=== PATIENT | male | born 1955 | race Caucasian/White ===

== ENCOUNTER 2023-10-11 11:52 | Outpatient (AMB) | payer MEDICARE, MEDICAID, SELFPAY ==
--- NOTE | 2023-10-11 11:57 | MHC.OFFVIS ---
Intake Vital Signs 10/11/23 11:58 Height 5 ft 8 in Weight 239 lb 6.752 oz BMI 36.4 Intake Visit Reasons: Cirrhosis and Hep C Intake Note: Patient presents to in office visit today as a new patient for cirrhosis and hepatitis C. CC: Patient c/o epigastric pain and abdominal bloating. Patient underwent EGD a couple of months at [facility]. Last colonoscopy at [place] as well but does not recall exact date. Patient was recently treated for H pylori per PTs . Supervisor Shaving And Splitting Required: No Accompanied by: Allergies carisoprodol [From [facility]] Allergy (Unknown, Verified 10/11/23 12:03) VOMITING HPI HPI Comments History of Present Illness Details This is a 68-year-old gentleman who has been referred by his primary care provider for reported history of chronic hepatitis-C and cirrhosis. Patient's previous core extruder was Lilia Flores NP. Pt reports having a longstanding hx of chronic HCV which he likely contracted through either IVDU or blood transfusion in the 1970s. Was treated in 2014 by his PCP with reported SVR. With this he resultantly had cirrhosis, also had etOH use in the background. Records from [facility] reviewed. EGD 06/14/2023 (Dr. Jackman): Irregularity at squamous columnar junction. Gastritis. Normal duodenum. Normal biopsies, no H pylori. EGD/colonoscopy 10/08/2019 (Dr. Moore): Grade 1 varices. Gastritis. Normal duodenal. Diverticulosis. Rectal polyps. Internal hemorrhoids. Hyperplastic polyps. No H pylori. Ultrasound elastography 07/24/2023: Coarse hepatic echotexture. No suspicious lesion. Nodular hepatic contour. Portal vein with hepatopetal flow. CBD 5 mm. Liver stiffness 10.6 correlating with known cirrhosis. Today, his main complaint is abdominal discomfort and bloating that gets progressively worse during the day. Has not identified any dietary triggers. Reports has been present intermittently since 2014. [facility] Surgical History (Updated 10/11/23 @ 12:12 by BRYAN Valentin) History of esophagogastroduodenoscopy (EGD) H/O colonoscopy Social History Alcohol intake: former Patient Tobacco Use Status: Former Tobacco user Review of Systems Const All systems reviewed & are unremarkable except as noted in HPI and below Physical Exam Vital Signs: BMI result Body Mass Index 36.4 Gen Appear: NAD, well nourished, undernourished HEENT: No scleral icterus, no bitemporal wasting noted Chest: CTA CVS: Regular S1/S2 no murmurs Abd: soft, nontender, nondistended, no shifting dullness to percussion, bowel sounds active Ext: No peripheral edema bilaterally Neuro: A/Ox3, no asterixis Derm: []Spider angioma and palmar erythema noted Const General: no acute distress HEENT Head: Yes normal to inspection Resp Effort & Inspection: normal respiratory effort GI Inspection: Yes normal to inspection Skin General skin exam: no rashes or lesions noted Neuro Other: Tremors and involuntary movements due to known tardive dyskinesia Assessment & Plan Assessment & Plan (1) Cirrhosis: Code(s): K74.60 - Unspecified cirrhosis of liver (2) Elevated LFTs: Code(s): R79.89 - Other specified abnormal findings of blood chemistry (3) Hepatitis C: Code(s): B19.20 - Unspecified viral hepatitis C without hepatic coma (4) Bloating: Code(s): R14.0 - Abdominal distension (gaseous) Plan #HCV cirrhosis: Labs ordered to monitor reported history of chronic hepatitis-C. Given history of IVDU, we will also check hepatitis-B. In addition, he will need q6m US to screen for HCC. NExt Us will be due in January 2024. Next EGD will be due in Jun 2025. #Abd bloating: No red flags. Ddx include dietary vs med related vs dymotility. Malabsorption less likely based on work up so far and negative duodenal bx. Will start with dietary modifications by reducing high FODMAPS. If suboptimal reponse check check vs empirically tx for SIBO. Handout provided for FODMAP diet. Follow up in 6 months Orders: Orders Complete Blood Count no Diff Today R79.89 - Other specified abnormal findings of blood chemistry Comprehensive Met. Panel Today R79.89 - Other specified abnormal findings of blood chemistry IRON PROFILE Today R79.89 - Other specified abnormal findings of blood chemistry Hepatitis C Antibody Today R79.89 - Other specified abnormal findings of blood chemistry Hepatitis B Core Antibody Today R79.89 - Other specified abnormal findings of blood chemistry Hepatitis B Surface Antigen Today R79.89 - Other specified abnormal findings of blood chemistry Hepatitis A IgG Today - Other specified abnormal findings of blood chemistry Prothrombin Time INR Today K74.60 - Unspecified cirrhosis of liver Transglutaminase IgA Today R14.0 - Abdominal distension (gaseous) Immunoglobulin A Today R14.0 - Abdominal distension (gaseous) HCV RNA QN PROG TO GENOTYPE Today - Other specified abnormal findings of blood chemistry Ferritin Today - Other specified abnormal findings of blood chemistry Hepatitis B Surface Antibody Today - Other specified abnormal findings of blood chemistry Phosphatidylethanol, Blood Today - Other specified abnormal findings of blood chemistry TSH reflex Free T4 Today R14.0 - Abdominal distension (gaseous) Coding Level of Care Code New Pt Level 4 (45938) Diagnoses Cirrhosis K74.60 Elevated LFTs Hepatitis C B19.20 Bloating R14.0
[2023-10-11 11:58] VITALS: BMI 36.4
== END 2023-10-11 12:44 | disposition home or self-care (01) ==
PROVIDERS: PCP Internal Medicine; Visit Provider Internal Medicine
DX: K74.60 Unspecified cirrhosis of liver (principal); R79.89 Other specified abnormal findings of blood chemistry; B19.20 Unspecified viral hepatitis C without hepatic coma; R14.0 Abdominal distension (gaseous)
CPT/HCPCS: 99204

== ENCOUNTER → 2023-10-11 11:52 | Outpatient (BNVA) | payer MEDICARE, MEDICAID, SELFPAY | PROVIDERS: PCP Internal Medicine; Visit Provider Internal Medicine | DX: K74.60 Unspecified cirrhosis of liver (principal); B19.20 Unspecified viral hepatitis C without hepatic coma; R79.89 Other specified abnormal findings of blood chemistry; R14.0 Abdominal distension (gaseous) | CPT/HCPCS: 99202 ==

== ENCOUNTER 2023-10-20 10:53 | Outpatient (REF) | payer MEDICARE, MEDICAID, SELFPAY ==
[2023-10-20 14:22] LABS: Hematocrit 50.5 % (42.0-52.0); Hemoglobin 17.6 g/dl (14.0-18.0); Mean Corpuscular HGB Conc 34.9 g/dl (31.0-36.0); Mean Corpuscular Hemoglobin 31.9 pg (27.0-33.0); Mean Corpuscular Volume 91.7 fL (80.0-98.0); Mean Platelet Volume 10.9 fL (9.4-12.4); Platelet Count 380 X10*3/uL (160-400); Red Blood Count 5.51 X10*6/uL (4.60-5.80); Red Cell Distribution Width 13.2 % (11.0-16.0); White Blood Count 10.3 X10*3/uL (4.8-10.8)
[2023-10-20 14:31] LABS: Prothrombin Time 11.7 SEC (11.1-13.3)
[2023-10-20 14:43] LABS: Alanine Aminotransferase 16 U/L (0-40); Albumin Level 4.3 g/dL (3.5-5.0); Alkaline Phosphatase 77 U/L (39-117); Anion Gap 10 (12-20); Aspartate Amino Transferase 23 U/L (5-37); Bilirubin Total 0.6 mg/dL (0.0-1.0); Blood Urea Nitrogen 12 mg/dL (9-16); Carbon Dioxide 33 mmol/L (22-29); Chloride 100 mmol/L (96-108); Estimated Glomerular Filt Rate > 60; Glucose Random 76 mg/dL (60-115); Iron 142 mcg/dL (45-160); Percent Iron Saturation 43 % (15-50); Sodium 139 mmol/L (135-145); Total Iron Binding Capacity 328 mcg/dL (228-428); Total Protein 8.3 g/dL (6.5-8.0); Unsaturated Iron Binding 186 ug/dL
[2023-10-20 14:57] LABS: Ferritin 164 ng/mL (20-250)
[2023-10-21 04:06] LABS: Hepatitis A Antibody IgG REACTIVE (Nonreactive); ~Hepatitis A Antibody IgG 8.89 S/CO (0.00-0.99)
[2023-10-21 04:13] LABS: HBS Num1 0.58 mIU/mL (0-7.99); HBc Num1 0.07 S/CO (0.00-0.79); HBsAGNum1 0.39 S/CO (0.00-0.99); Hepatitis B Core Antibody Nonreactive (Nonreactive); Hepatitis B Surface Antigen Negative (Negative); ~HepC Num1 12.15 S/CO (0.00-0.79); ~Hepatitis B Surface Antibody NONREACTIVE (Nonreactive); ~Hepatitis C Antibody Reactive (Nonreactive)
[2023-10-23 14:43] LABS: HCV RNA PCR Qn <1.18 NOT DETECTED Log IU/mL (NOT DETECTED); HCV RNA PCR Qn <15 NOT DETECTED IU/mL (NOT DETECTED)
[2023-10-26 08:43] LABS: Phosphatidylethanol 16:0-18:1 NEGATIVE; Phosphatidylethanol 16:0-18:2 NEGATIVE
== END 2023-10-20 10:54 | disposition home or self-care (01) ==
LOC: HO.WFDLDS 10:53
PROVIDERS: Visit Provider Internal Medicine
DX: K74.60 Unspecified cirrhosis of liver (principal); R79.89 Other specified abnormal findings of blood chemistry
CPT/HCPCS: 36415; 80053; 80321; 82728; 83540; 85027; 85610; 86704; 86706; 86708; 86803; 87340; 87522

== ENCOUNTER → 2023-11-28 15:10 | Outpatient (AMB) | payer MEDICARE, MEDICAID, SELFPAY ==
[2023-11-28 15:13] VITALS: BP 102/74; PULSE 63; BMI 36.5
--- NOTE | 2023-11-28 15:13 | A.OFFVIS_ITS ---
Vital Signs 11/28/23 15:13 Height 5 ft 8 in Weight 240 lb 4.862 oz BMI 36.5 BP 102/74 Blood Pressure Location Lt brachial Position Sitting Pulse 63 Intake Visit Reasons: wants to discuss labs Intake Note: Patient returns in office today in follow up of labs. CC: Patient reports that the epigstric pain has been worst since last visit and the abdominal bloating too. He also c/o left lower back pain and lower mid back pain. Patient very depressed the last couple of days d/t pain. He states that he has 4-5 BMs in the morning but it comes in little pieces. His states that she has been giving the PT charcoal caps to help with bloating and gas and it se ems like it's sending him more to the bathroom and his stools are darker. Telemetry Registered Nurse Required: No Accompanied by: Allergies carisoprodol [From [facility]] Allergy (Unknown, Verified 11/28/23 15:27) VOMITING HPI Comments Details: This is a 68-year-old gentleman who has been referred by his primary care provider for reported history of chronic hepatitis-C and cirrhosis. 10/11/23: Patient's previous visiting professor was Lilia Flores ACADEMIC ASSOCIATE. Pt reports having a longstanding hx of chronic HCV which he likely contracted through either IVDU or blood transfusion in the 1970s. Was treated in 2014 by his PCP with reported SVR. With this he resultantly had cirrhosis, also had etOH use in the background. Records from [facility] reviewed. EGD 06/14/2023 (Dr. Jackman): Irregularity at squamous columnar junction. Gastritis. Normal duodenum. Normal biopsies, no H pylori. EGD/colonoscopy 10/08/2019 (Dr. Moore): Grade 1 varices. Gastritis. Normal duodenal. Diverticulosis. Rectal polyps. Internal hemorrhoids. Hyperplastic polyps. No H pylori. Ultrasound elastography 07/24/2023: Coarse hepatic echotexture. No suspicious lesion. Nodular hepatic contour. Portal vein with hepatopetal flow. CBD 5 mm. Liver stiffness 10.6 correlating with known cirrhosis. Today, his main complaint is abdominal discomfort and bloating that gets progressively worse during the day. Has not identified any dietary triggers. Reports has been present intermittently since 2014. 11/28/23: Here for urgent follow up as called reporting pt has severe sx and may not survive due to severity of abd pain. Pt seen in presence of . Reports sx are unchanged in the last 3 years and have not gotten worse. Reports daily bloating which is worse in mid day. Patient not able to articulate if symptoms are different or worse from previous visit on 10/11/2023. has been trying charcoal capsules to improve diarrhea, but patient reports that stools have become significantly harder, and seem a bit darker as well. [facility] Surgical History History of esophagogastroduodenoscopy (EGD) H/O colonoscopy Social History Alcohol intake: former Patient Tobacco Use Status: Former Tobacco user Review of Systems Const All systems reviewed & are unremarkable except as noted in HPI and below Physical Exam Vital Signs: Last Vital Signs Pulse 63 11/28/23 15:13 BP 102/74 11/28/23 15:13 BMI result Body Mass Index 36.5 Const General: no acute distress HEENT Head: Yes normal to inspection Resp Effort & Inspection: normal respiratory effort GI Inspection: Yes normal to inspection Skin General skin exam: no rashes or lesions noted Neuro Other: Tremors and involuntary movements due to known tardive dyskinesia Results Reviewed Results Reviewed: Laboratory Tests 10/20/23 11:00 Hgb 17.6 Hct 50.5 Plt Count 380 INR 1.0 BUN 12 Creatinine 0.88 Ferritin 164 Total Bilirubin 0.6 AST 23 ALT 16 Alkaline Phosphatase 77 Total Protein 8.3 H Albumin 4.3 Hep Bs Antigen Negative HCV RNA (PCR) IUs/ml <15 NOT DETECTED HCV RNA PCR log IUs/ml <1.18 NOT DETECTED Assessment & Plan Assessment & Plan (1) Cirrhosis: Code(s): K74.60 - Unspecified cirrhosis of liver Category: Medical (2) Elevated LFTs: Code(s): R79.89 - Other specified abnormal findings of blood chemistry Category: Medical (3) Bloating: Code(s): R14.0 - Abdominal distension (gaseous) Category: Medical Plan #HCV cirrhosis: Labs reviewed with the patient, and he was reassured that no evidence of chronic hepatitis-C infection. Remains in SVR. Also does not appear to have any CS PH based on clinical assessment. As mentioned in previous visit, next EGD will be due in June 2025. He will be due for ultrasound for HCC screening next month - US booked. #Abd bloating: No red flags. Ddx include dietary vs med related vs dymotility. Malabsorption less likely based on work up so far and negative duodenal bx. Patient has not tried FODMAP diet yet. Patient and were also counseled against using charcoal is not indicated for bloating, in fact may make it worse. They are interested in empiric treatment for SIBO. Rifaximin does not appear to be covered by the insurance. Cipro 500 b.i.d. prescribed x 10 days Follow up in 4 weeks - already booked Medications: New ciprofloxacin HCl (Cipro) 500 mg PO BID 20 tabs 0RF 10 days
== END ==
PROVIDERS: PCP Internal Medicine; Visit Provider Internal Medicine
DX: K74.60 Unspecified cirrhosis of liver (principal); R79.89 Other specified abnormal findings of blood chemistry; R14.0 Abdominal distension (gaseous)
CPT/HCPCS: 99214

== ENCOUNTER → 2023-11-28 15:10 | Outpatient (BNVA) | payer MEDICARE, MEDICAID, SELFPAY | PROVIDERS: PCP Internal Medicine; Visit Provider Internal Medicine | DX: K74.60 Unspecified cirrhosis of liver (principal); R14.0 Abdominal distension (gaseous); R79.89 Other specified abnormal findings of blood chemistry | CPT/HCPCS: 99212 ==

== ENCOUNTER 2023-12-28 08:16 | Outpatient (REF) | payer MEDICARE, MEDICAID, SELFPAY ==
--- NOTE | ~2023-12-28 | US_ITS ---
EXAMINATION: US ABDOMEN COMPLETE CLINICAL INFORMATION: Unspecified cirrhosis of liver. COMPARISON: Limited abdominal ultrasound 12/31/2015 and 07/07/2015 (report only). TECHNIQUE: Real-time imaging of the abdominal viscera. FINDINGS: PANCREAS: Normal. ABDOMINAL AORTA: The proximal, mid, and distal segments are normal in caliber. INFERIOR VENA CAVA: Visualized portions are normal. LIVER: The liver is normal in size. Parenchymal echogenicity is normal. No focal hepatic lesion. There is no intrahepatic biliary duct dilatation seen. Of note, the main portal vein appears partially thrombosed but is still seen to have hepatopedal flow. The right and left portal veins are patent without thrombus. GALLBLADDER: The gallbladder is physiologically distended without evidence of stones, sludge, wall thickening or pericholecystic fluid. A 6 mm polyp is present. COMMON BILE DUCT: Normal in caliber measuring 0.4 cm in diameter. RIGHT KIDNEY: Normal. No hydronephrosis. No renal calculi or focal parenchymal lesions. The kidney measures 11.2 cm in maximum dimension. LEFT KIDNEY: No hydronephrosis or renal calculi. The kidney measures 11.3 cm in maximum dimension. 2 benign Bosniak class I renal cysts are noted, the largest measuring 1.1 cm which require no additional imaging or follow-up. No solid renal masses are seen. SPLEEN: Surgically absent. FREE FLUID: None. US/US abdomen complete IMPRESSION: 1. The main portal vein appears partially thrombosed with thrombus seen but does demonstrate hepatopedal flow. 2. 6 mm gallbladder polyp. 3. Status post splenectomy.
== END 2023-12-28 08:17 | disposition home or self-care (01) ==
LOC: HO.US 08:16
PROVIDERS: PCP Internal Medicine; Visit Provider Internal Medicine
DX: K74.60 Unspecified cirrhosis of liver (principal)
CPT/HCPCS: 76700

== ENCOUNTER 2024-01-02 11:05 | Outpatient (AMB) | payer MEDICARE, MEDICAID, SELFPAY ==
--- NOTE | 2024-01-02 11:09 | A.OFFVIS_ITS ---
Vital Signs 01/02/24 11:10 Height 5 ft 8 in Weight 238 lb 1.588 oz BMI 36.2 BP not taken reason Medical Reason Intake Visit Reasons: F/U U/S Intake Note: Arnold presents in the office as a follow up US. CC: Same concerns but here for results to the ultrasound. Machinist Wood Required: No Allergies carisoprodol [From [facility]] Allergy (Unknown, Verified 01/02/24 11:11) VOMITING HPI Comments Details: This is a 68-year-old gentleman who has been referred by his primary care provider for reported history of chronic hepatitis-C and cirrhosis. 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 Pt reports having a longstanding hx of chronic HCV which he likely contracted through either IVDU or blood transfusion in the 1970s. Was treated in 2014 by his PCP with reported SVR. With this he resultantly had cirrhosis, also had etOH use in the background. Records from [facility] reviewed. EGD 06/14/2023 (Dr. Jackman): Irregularity at squamous columnar junction. Gastritis. Normal duodenum. Normal biopsies, no H pylori. EGD/colonoscopy 10/08/2019 (Dr. Moore): Grade 1 varices. Gastritis. Normal duodenal. Diverticulosis. Rectal polyps. Internal hemorrhoids. Hyperplastic polyps. No H pylori. Ultrasound elastography 07/24/2023: Coarse hepatic echotexture. No suspicious lesion. Nodular hepatic contour. Portal vein with hepatopetal flow. CBD 5 mm. Liver stiffness 10.6 correlating with known cirrhosis. Today, his main complaint is abdominal discomfort and bloating that gets progressively worse during the day. Has not identified any dietary triggers. Reports has been present intermittently since 2014. 11/28/23: Here for urgent follow up as called reporting pt has severe sx and may not survive due to severity of abd pain. Pt seen in presence of . Reports sx are unchanged in the last 3 years and have not gotten worse. Reports daily bloating which is worse in mid day. Patient not able to articulate if symptoms are different or worse from previous visit on 10/11/2023. has been trying charcoal capsules to improve diarrhea, but patient reports that stools have become significantly harder, and seem a bit darker as well. 01/02/24: Here for follow up after cipro trial. Reports no improvement with ABx. Most of the frequent BMs are in the morning. First BM is normal and then the following 3-4 BMs are loose. Takes lactulose twice a day. Has the runs after taking the second dose of lactulose. US Abd reviewed- appears to have a partial thrombus in PV. Flow normal. From prev US done at [facility], no PVT was reported. No varices or PHG reported on EGD 06/2023 at [facility]. PFSH Surgical History History of esophagogastroduodenoscopy (EGD) H/O colonoscopy Social History Alcohol intake: former Patient Tobacco Use Status: Former Tobacco user Review of Systems Const All systems reviewed & are unremarkable except as noted in HPI and below Physical Exam Vital Signs: BMI result Body Mass Index 36.2 Const General: no acute distress HEENT Head: Yes normal to inspection Resp Effort & Inspection: normal respiratory effort GI Inspection: Yes normal to inspection Skin General skin exam: no rashes or lesions noted Neuro Other: Tremors and involuntary movements due to known tardive dyskinesia Assessment & Plan Assessment & Plan (1) Cirrhosis: Code(s): K74.60 - Unspecified cirrhosis of liver Category: Medical (2) Bloating: Code(s): R14.0 - Abdominal distension (gaseous) Category: Medical (3) Portal vein thrombosis: Code(s): I81 - Portal vein thrombosis Category: Medical (4) Diarrhea: Code(s): R19.7 - Diarrhea, unspecified Category: Medical Plan #HCV cirrhosis: #Partial PVT No evidence of chronic hepatitis-C infection. Remains in SVR. Also does not appear to have any CSPH based on clinical assessment. US results reviewed. Partial PVT - appears subacute as no clot mentioned on prev ious US done at [facility]. Plan: - Check LFTs - EGD for variceal screening - If no varices, can consider anticoagulation x 3 months vs repeat US in 3 months #Abd bloating and diarrhea: No red flags. Minimal response to empiric Abx for SIBO (cipro). Pt has been on rifaximin BID for HE. Reviewed that can titrate down lactulose to assess response. Plan: - Take lactulose one a day for goal 2-3 BMs - can increase if has <2BMs - If cont to have bloating, can consider discontinuing lactulose altogether (since also on rifaximin) vs alternating with miralax Follow up after EGD Orders: Orders EGD with Awad - GI Use Only Today I81 - Portal vein thrombosis Liver Panel Today R79.89 - Other specified abnormal findings of blood chemistry Coding Level of Care Code Est Pt Level 4 (98423) Diagnoses Cirrhosis K74.60 Bloating R14.0 Portal vein thrombosis I81 Diarrhea R19.7
[2024-01-02 11:10] VITALS: BMI 36.2
== END 2024-01-02 11:47 | disposition home or self-care (01) ==
PROVIDERS: PCP Internal Medicine; Visit Provider Internal Medicine
DX: K74.60 Unspecified cirrhosis of liver (principal); R14.0 Abdominal distension (gaseous); I81 Portal vein thrombosis; R19.7 Diarrhea, unspecified
CPT/HCPCS: 99214

== ENCOUNTER → 2024-01-02 11:05 | Outpatient (BNVA) | payer MEDICARE, MEDICAID, SELFPAY | PROVIDERS: PCP Internal Medicine; Visit Provider Internal Medicine | DX: R14.0 Abdominal distension (gaseous) (principal); I81 Portal vein thrombosis; R19.7 Diarrhea, unspecified; R79.89 Other specified abnormal findings of blood chemistry; Z86.19 Personal history of other infectious and parasitic diseases | CPT/HCPCS: 99212 ==

== ENCOUNTER 2024-01-03 10:38 | Day surgery (SDC) | payer MEDICARE, MEDICAID, SELFPAY ==
--- OUTSIDE RECORDS SUMMARY | 2024-01-03 10:40 | XMS_ITS | Continuity of Care Document ---
Author Organization [facility] Address [address] [place] [id number] Care Team Providers Care Blister Pack Operator Name Role Phone Hai PHOENIX, Rocael Valerio Primary Care Physician [phone] Encounter [facility] Date(s): 03/30/21 - 04/29/21 [facility] [address] [place] [id number] [place] Allergies, Adverse Reactions, Alerts Substance Reaction Severity Status [facility] Active Ingrezza Active Immunizations Given and Recorded Vaccine Date Status Refusal Reason pneumococcal 23-valent vaccine 09/20/18 Given Not Given Vaccine Date Status Refusal Reason influenza virus vaccine, inactivated 1 09/21/20 No t Given Patient Refuses 1Result Comment: pt already recieved flu shot Medications Carafate 1 gm oral tablet 1 Gm, 1, tablet, By Mouth, 4 times a day, # 360 tablet, Refills 3, Tot. Refills 3, Maintenance, 03/05/21 12:26:00 EDT, Route to Pharmacy Electronically, [id number] - [place], [place],Partial fill upon patient request if the prescripti... Start Date: 03/05/21 Status: Ordered ibuprofen 600 mg oral tablet TAKE 1 TABLET BY MOUTH THREE TIMES DAILY NEEDED WITH food Start Date: 11/06/20 Status: Ordered lactulose 10 gm/15 ml oral syrup 30 mL = 20 Gm, By Mouth, 3 times a day, # 480 mL, 0 Refills, Maintenance, 10/08/19 10:56:00 EST, Syrup Start Date: 10/08/19 Status: Ordered Lasix 20 mg oral tablet 20 mg, 1, tablet, By Mouth, Daily, # 30 tablet, Refills 0, Maintenance, 01/16/19 13:52:27 EDT Start Date: 01/16/19 Status: Ordered LORazepam 0.5 mg oral tablet 1 tablet = 0.5 mg, By Mouth, 3 times a day, PRN for anxiety, # 30 tablet, 2 Refills, Maintenance, 09/26/20 10:15:00 EST, Tablet, [facility] [address] [place] [address], Partial fill upon patient request if the prescription is for a schedule II... Start Date: 09/26/20 Status: Ordered omeprazole 40 mg oral enteric coated capsule 1 capsule = 40 mg, By Mouth, Daily, # 90 capsule, 3 Refills, Maintenance, 02/24/21 13:24:00 EDT, ECCapsule, [facility] [address] [place] [address], Partial fill upon patient request if the prescription is for a schedule II opioid drug., 174, c... Start Date: 02/24/21 Status: Ordered sertraline 100 mg oral tablet 1 tablet = 100 mg, By Mouth, Daily, Take with 50 mg tabs for a total of 150 mg daily, # 30 tablet, 0 Refills, Maintenance, 09/26/20 10:59:00 EST, Tablet, [facility] [address], Partial fill upon patient request if the prescript... Start Date: 09/26/20 Status: Ordered sertraline 50 mg oral tablet 1 tablet = 50 mg, By Mouth, Daily, # 30 tablet, 0 Refills, Maintenance, 09/26/20 10:58:00 EST, Tablet, [facility] [address] [place] [address], Partial fill upon patient request if the prescription is for a schedule II opioid drug., 176, cm, ... Start Date: 09/26/20 Status: Ordered spironolactone 100 mg oral tablet 100 mg, 1, tablet, By Mouth, Daily, Refills 0, Maintenance, 10/28/20 12:05:00 EST, Partial fill upon patient request if the prescription is for a schedule II opioid drug. Start Date: 10/28/20 Status: Ordered Xifaxan 550 mg oral tablet 1 tablet, By Mouth, 2 times a day, # 60 tablet, 5 Refills, Maintenance, 06/24/20 8:28:00 EDT, [facility], [facility], cm, 05/15/20 14:48:00 EDT, Height, 116.8, kg, 02/03/20 11:23:00 EDT, Dry Weight Start Date: 06/24/20 Status: Ordered Xifaxan 550 mg oral tablet 1 tablet = 550 mg, By Mouth, 2 times a day, # 180 tablet, 3 Refills, Maintenance, 01/10/21 12:51:00EDT, Tablet, [facility] - [place], [place], Partial fill upon patient request if the prescription is for a schedule II opioid drug., 17... Start Date: 01/10/21 Status: Ordered Problem List Condition Effective Dates Status Health Status Inform ant Bipolar disorder(Confirmed) Active Psychosis(Confirmed) Active Tardive dyskinesia(Confirmed) Active Hepatitis-C(Confirmed) Active Social History Social History Type Response Smoking Status Former smoker, quit more than 30 days ago entered on: 05/22/19 Sex
--- OUTSIDE RECORDS SUMMARY | 2024-01-03 10:40 | XMS_ITS | Continuity of Care Document ---
Author Organization [facility] Address [address] [place] [address]- Care Team Providers Care Chemist Internship Name Role Phone Hai PHOENIX, Rocael Valerio Primary Care Physician [phone] [place] [facility] [place] - 09/23/[address] [id number] Discharge Disposition: Transfer to [facility] Facility Attending Physician: Stefany Quinn MD Admitting Physician: Felisha Salas MD Referring Physician: Not on Staff, Referring MD Allergies, Adverse Reactions, Alerts Substance Reaction Severity Status Soma Active Ingrezza Active Immunizations Given and Recorded Vaccine Date Status Refusal Reason pneumococcal 23-valent vaccine 09/20/18 Given Not Given Vaccine Date Status Refusal Reason influenza virus vaccine, inactivated 1 09/21/20 No t Given Patient Refuses 1Result Comment: pt already recieved flu shot Medications acetaminophen 325 mg oral tablet 975 mg, 3, tablet, By Mouth, Every 6 hours, PRN, Refills 0, Maintenance, Pain , Mild, 09/23/20 11:50:00 EST, Partial fill upon patient request if the prescription is for a schedule II opioid drug. Start Date: 09/23/20 Status: Ordered bisacodyl 10 mg rectal suppository 1 supp = 10 mg, Rectally, 2 times a day, PRN Constipation, 0 Refills, Maintenance, 09/23/20 11:49:00 EST, Suppository, Partial fill upon patient request if the prescription is for a schedule II opioid drug. Start Date: 09/23/20 Status: Ordered docusate sodium 150 mg/15 ml oral liquid 10 mL = 100 mg, By Mouth, 2 times a day, PRN Constipation, 0 Refills, Maintenance, 09/23/20 11:49:00 EST, Liquid, Partial fill upon patient request if the prescription is for a schedule II opioid drug. Start Date: 09/23/20 Status: Ordered Enoxaparin 0.4 mL = 40 mg, Subcutaneous Injection, Daily, 0 Refills, Maintenance, 09/23/20 11:49:00 EST, Injection, Partial fill upon patient request if the prescription is for a schedule II opioid drug. Start Date: 09/23/20 Status: Ordered ibuprofen 600 mg oral tablet 600 mg, 1, tablet, By Mouth, 3 times a day, PRN, Refills 0, Maintenance, Pain , Mild, 10/08/19 10:34:00 EST Start Date: 10/08/19 Status: Ordered lactulose 10 gm/15 ml oral [...] 3 times a day, PRN for anxiety, 0 Refills, Maintenance, 11/08/19 15:30:00 EST, Tablet Start Date: 11/08/19 Status: Ordered Melatonin = 6 mg, By Mouth, Daily at bedtime, 0 Refills, Maintenance, 09/23/20 11:49:00 EST, Tablet, Partial fill upon patient request if the prescription is for a schedule II opioid drug. Start Date: 09/23/20 Status: Ordered olanzapine 5 mg oral tablet 5 mg, 1, tablet, By Mouth, 2 times a day, Refills 0, Maintenance, 09/23/20 11:49:00 EST, Partial fill upon patient request if the prescription is for a schedule II opioid drug. Start Date: 09/23/20 Status: Ordered olanzapine 5 mg oral tablet 5 mg, 1, tablet, By Mouth, 3 times a day, PRN, Refills 0, Maintenance, Agitation, 09/23/20 11:49:00EST, Partial fill upon patient request if the prescription is for a schedule II opioid drug. Start Date: 09/23/20 Status: Ordered sertraline 50 mg oral tablet 3 tablet = 150 mg, By Mouth, Daily, 0 Refills, Maintenance, 09/23/20 11:49:00 EST, Tablet, Partial fill upon patient request if the prescription is for a schedule II opioid drug. Start Date: 09/23/20 Status: Ordered Xifaxan 550 mg oral tablet 1 tablet, By Mouth, 2 times a day, # 60 tablet, 5 Refills, Maintenance, 06/24/20 8:28:00 EDT, [facility], 175, cm, 05/15/20 14:48:00 EDT, Height, 116.8, kg, 02/03/20 11:23:00 EDT, Dry Weight Start Date: 06/24/20 Status: Ordered Problem List Condition Effective Dates Status Health Status Inform ant Bipolar disorder(Confirmed) Active Psychosis(Confirmed) Active Tardive dyskinesia(Confirmed) Active Hepatitis-C(Confirmed) Active Results Orders for Microbiology Reports Name Date Urine Culture 09/13/20 Microbiology Reports TEST:Urine Culture STATUS:Auth (Verified) BODY SITE: SOURCE:HONG COLLECTED DATE/TIME:09/13/20 9:05 AM Urine Culture SPECIMEN DESCRIPTION : HONG CATHETER SPECIAL REQUESTS : NONE CULTURE : NO GROWTH REPORT STATUS : FINAL 09/14/2020 Radiology Reports * Exam Date Time Procedure Performing Provider Status 09/12/20 2:10 PM Chest Portable Greg Patel; Auth (Lamar ified) Notes: (Chest Portable) Reason For Exam: leukocytosis, high aspiration risk;Other: RESULT: Chest Portable Chest Portable AP upright at 2:01 PM INDICATION: leukocytosis, high aspiration risk; Clinical Question(s): Pneumonia / Pneumonia COMPARISON: 09/09/2020 FINDINGS: LINES AND TUBES: None. LUNGS AND PLEURA: Clear lungs. Normal pulmonary vascularity. No pleural effusion. No pneumothorax. HEART, MEDIASTINUM AND ADRIENNE: Heart is normal in size. Normal mediastinal and hilar contour. BONES AND SOFT TISSUES: No acute abnormality. IMPRESSION: No evidence of acute abnormality. WSN: [id number] Ordering Physician: Maddie Lemos Dictated By: Logan Childress MD Dictated Date/Time: 09/12/20 2:18 pm Reviewed By: Logan Childress MD Signed By: Logan Childress MD Signed Date/Time: 09/12/20 2:18 pm Transcribed By: PHILIP Transcribed Date/Time: 09/12/20 2:17 pm * Exam Date Time Procedure Performing Provider Status 09/09/20 10:37 PM Chest Portable Ana Luisa Castillo; Auth (Verified) Notes: (Chest Portable) Reason For Exam: Tube Placement RESULT: Chest Portable AP supine portable chest dated September 09, 2020 at 2116 hours. Comparison films are from earlier in the day at 1708 hours. HISTORY: Nasogastric tube placement. FINDINGS: The cardiac silhouette is increased in size and unchanged. Endotracheal tube remains in place with its tip 4.4 cm proximal to the kristi. A nasogastric tube extends into the left upper quadrant. It curls still being beneath the left hemidiaphragm. The tip and sidehole are distal to the EG junction region. Some metallic artifacts are present overlying the upper abdomen on the left. Increased attenuation is present at the left lung base most consistent with atelectasis. Visualized osseous structures are unremarkable. IMPRESSION: Nasogastric tube in place. It is in the left upper quadrant overlying the expected location of the fundus of the stomach. Examination [id number]. Thank you for allowing me to participate in the care of this patient. WSN: [id number] Ordering Physician: Konrad Coffman Dictated By: Jacoby Harris MD Dictated Date/Time: 09/09/20 11:00 p Reviewed By: Jacoby Harris MD Signed By: Jacoby Harris MD Signed Date/Time: 09/09/20 11:00 pm Transcribed By: PHILIP Transcribed Date/Time: 09/09/20 11:00 pm Vital Signs Most recent to oldest [Reference Range]: 1 2 3 Height 175 cm (09/23/20 8:06 AM) 175 cm (09/23/20 3:44 AM) 175 cm (09/22/20 11:47 PM) Weight 112.5 kg (09/23/20 3:44 AM) 113.3 kg (09/22/20 2:49 AM) 112 kg (09/21/20 3:52 AM) Oxygen Saturation [94-100 %] 95 % (09/23/20 8:06 AM) 96 % (09/23/20 3:44 AM) 97 % (09/22/20 11:47 PM) Pulse Rate [55-90 bpm] 58 bpm (09/23/20 8:06 AM) 58 bpm (09/23/20 3:44 AM) 69 bpm (09/22/20 11:47 PM) Body Mass Index [18.5-24.99] 36.73 *>HHI* (09/23/20 3:44 AM) 37 *>HHI* (09/22/20 2:49 AM) 36.57 *>HHI* (09/21/20 3:52 AM) Blood Pressure [90-138/55-84 mm Hg] 135/76mm Hg (09/23/20 8:06 AM) 129/74mm Hg (09/23/20 3:44 AM) 140/73mm Hg *H* (09/22/20 11:47 PM) Respiratory Rate [16-30 br/min] 18 br/min (09/23/20 8:06 AM) 18 br/min (09/23/20 3:44 AM) 18 br/min (09/22/20 11:47 PM) Temperature [96.8-100.4 DegF] 98.5 DegF (09/23/20 8:06 AM) 98.5 DegF (09/23/20 3:44 AM) 98.1 DegF (09/22/20 11:47 PM) Liters per Minute 3 L/min (09/13/20 7:00 AM) 3 L/min (09/13/20 3:00 AM) 3 L/min (09/12/20 11:00 PM) Mode of Delivery (Oxygen) Room air (09/23/20 8:06 AM) Room air (09/23/20 3:44 AM) Room air (09/22/20 11:47 PM) Blood pressure sites Arm, left (09/23/20 8:06 AM) Arm, right (09/23/20 3:44 AM) Arm, right (09/22/20 11:47 PM) Temperature Route Oral (09/23/20 8:06 AM) Oral (09/23/20 3:44 AM) Oral (09/22/20 11:47 PM) Dry Weight 114.7 kg (09/09/20 7:58 PM) Weight Obtained Via Bed scale (09/23/20 3:44 AM) Bed scale (09/22/20 2:49 AM) Bed scale (09/21/20 3:52 AM) Social History Social History Type Response Smoking Status Former smoker, quit more than 30 days ago entered on: 05/22/19 Sex
--- OUTSIDE RECORDS SUMMARY | 2024-01-03 10:40 | XMS_ITS | Continuity of Care Document ---
Author Organization [facility] Address [address] [place] [address]- Care Team Providers Care Texture Artist Name Role Phone Rocael Valles MD Primary Care Physician [phone] Encounter [facility] [place] R [id number] Date(s): 06/29/23 - 08/04/23 [facility] [address] [place] [address]- Attending Physician: Elder PHOENIX, Salomón Felder Admitting Physician: Elder PHOENIX, Salomón Felder Referring Physician: Rocael Valles MD Allergies, Adverse Reactions, Alerts Substance Reaction Severity Status Soma Active Ingrezza Active Immunizations Given and Recorded Vaccine Date Status Refusal Reason pneumococcal 23-valent vaccine 09/20/18 Given Medications clonazePAM 0.5 mg oral tablet 1 tablet = 0.5 mg, By Mouth, 2 times a day, 0 Refills, Maintenance, 02/19/22 10:27:00 EDT, Tablet, Partial fill upon patient request if the prescription is for a schedule II opioid drug. Start Date: 02/19/22 Status: Ordered lactulose 10 gm/15 ml oral syrup 30 mL = 20 Gm, By Mouth, 2 times a day, # 480 mL, 1 Refills, Maintenance, 02/19/22 10:29:00 EDT, Syrup, [facility] [place], [place], Partial fill upon patient request if the prescription is for a schedule II opioid drug., 30 mL By Mo... Start Date: 02/19/22 Status: Ordered Lasix 20 mg oral tablet 20 mg, 1, tablet, By Mouth, Daily, # 90 tablet, Refills 3, Tot. Refills 3, Maintenance, 01/25/23 15:34:00 EDT, Route to Pharmacy Electronically, [facility] [place], [place], Partialfill upon patient request if the prescription is fo... Start Date: 01/25/23 Status: Ordered Protonix 40 mg oral delayed release tablet 1 tablet = 40 mg, By Mouth, 2 times a day, # 60 tablet, 1 Refills, Maintenance, 05/26/23 9:38:00 EDT, EC Tablet, 174, cm, 01/07/23 13:28:00 EDT, Height, 98, kg, 02/11/22 18:56:00 EDT, Dry Weight Start Date: 05/26/23 Stop Date: 07/25/23 Status: Ordered sertraline 100 mg oral tablet 1 tablet = 100 mg, By Mouth, Daily, Take with 50 mg tabs for a total of 150 mg daily, # 30 tablet, 1 Refills, Maintenance, 02/19/22 10:29:00 EDT, Tablet, [facility] [address] [place] [address], [place], Partial fill upon patient request if the prescript... Start Date: 02/19/22 Status: Ordered spironolactone 100 mg oral tablet 1, tablet, By Mouth, Daily, # 30 tablet, Refills 1, Tot. Refills 1, Maintenance, 07/25/23 10:30:00 EST, Route to Pharmacy Electronically, [facility] [facility], [place], 172, cm, 06/14/23 13:53:00 EDT, Height, 106.8, kg, 06/14/23 13:53:... Start Date: 07/25/23 Status: Ordered Xifaxan 550 mg oral tablet 1 tablet = 550 mg, By Mouth, 2 times a day, # 180 tablet, 1 Refills, Maintenance, 01/25/23 15:35:00EDT, Tablet, [facility] [address] [place] [address], [place], Partial fill upon patient request if the prescription is for a schedule II opioid drug., 17... Start Date: 01/25/23 Stop Date: 07/24/23 Status: Ordered Problem List Condition Confirmation Course Effective Dates Status Health St atus Informant Bipolar disorder Confirmed Active Obese class II Confirmed Active Psychosis Confirmed Active Tardive dyskinesia Confirmed Active Hepatitis-C Confirmed Active Social History Social History Type Response Smoking Status Former smoker, quit more than 30 days ago entered on: 05/22/19 Sex Patient Care team information Care Team Personnel Name: Génesis Underwood RN Position: [facility] RN Member Role: Primary Care Nurse Name: Alessandra Albarran RN Position: [facility] RN Member Role: Primary Care Nurse Name: Saad Sy RN Position: [facility] RN Member Role: Primary Care Nurse Name: Shilpa Aguero RN Position: [facility] RN Member Role: Primary Care Nurse Name: Ana M Vega RN Position: [facility] RN Member Role: Primary Care Nurse Name: Kim Adair RN Position: [facility] AMB Nurse Member Role: Primary Care Nurse Name: Rocael Valles MD Position: [facility] Physician - Primary Care Member Role: PCP Address: Address: [address] [place] [address], [address] [place] [address]- Name: Ana M Farnsworth RN Position: [facility] RN Member Role: Primary Care Nurse Care Team Related Persons Name: JUANPABLO CARTER Address: [address] [place] [address]
--- OUTSIDE RECORDS SUMMARY | 2024-01-03 10:40 | XMS_ITS | Continuity of Care Document ---
Author Organization [facility] Address [address] [place] [address]- Care Team Providers Care Associate Quality Engineer Name Role Phone Hai PHOENIX, Rocael Valerio Primary Care Physician [phone] [place] [facility] [place]20 [facility] [address] [place] [id number] Attending Physician: Una Fuentes Admitting Physician: Una Fuentes Referring Physician: AdmtrUna Referring Physician: Génesis Chang [place] Allergies, Adverse Reactions, Alerts Substance Reaction Severity Status Soma Active Ingrezza Active Immunizations Given and Recorded Vaccine Date Status Refusal Reason pneumococcal 23-valent vaccine 09/20/18 Given Medications eplerenone 50 mg oral tablet 1 tablet = 50 mg, By Mouth, Daily, TAKE 1 TABLET BY MOUTH DAILY Start Date: 09/11/20 Status: Ordered ibuprofen 600 mg oral tablet [...] EST, Tablet Start Date: 11/08/19 Status: Ordered sertraline 50 mg oral tablet 1 tablet = 50 mg, By Mouth, Daily, # 30 tablet, 0 Refills, Maintenance, 05/24/19 15:34:23 EDT, Tablet Start Date: 05/24/19 Status: Ordered spironolactone 100 mg oral tablet 100 mg, By Mouth, Daily, Refills 0, Maintenance, 09/22/18 17:27:58 EST Start Date: 09/22/18 Status: Ordered Xenazine 12.5 mg oral tablet 1 tablet = 12.5 mg, By Mouth, 3 times a day, # 90 tablet, 0 Refills, Maintenance, 05/16/20 9:31:00 EDT, Tablet, [facility] [place], [place], 175, cm, 05/15/20 14:48:00 EDT, Height, 116.8, kg, 02/03/20 11:23:00 EDT, Dry Weight Start Date: 05/16/20 Status: Ordered Xifaxan 550 mg oral tablet 1 tablet, By Mouth, 2 times a day, # 60 tablet, 5 Refills, Maintenance, 06/24/20 8:28:00 EDT, [facility], 175, cm, 05/15/20 14:48:00 EDT, Height, 116.8, kg, 02/03/20 11:23:00 EDT, Dry Weight Start Date: 06/24/20 Status: Ordered Zoloft 100 mg oral tablet 1 tablet = 100 mg, By Mouth, Daily, # 30 tablet, 0 Refills, Maintenance, 01/16/19 13:52:44 EDT, Tablet Start Date: 01/16/19 Status: Ordered Problem List Condition Effective Dates Status Health Status Inform ant Bipolar disorder(Confirmed) Active Psychosis(Confirmed) Active Tardive dyskinesia(Confirmed) Active Hepatitis-C(Confirmed) Active Social History Social History Type Response Smoking Status Former smoker, quit more than 30 days ago entered on: 05/22/19 Sex
--- OUTSIDE RECORDS SUMMARY | 2024-01-03 10:40 | XMS_ITS | Continuity of Care Document ---
Author Organization [facility] Address [address] [place] [address]- Care Team Providers Care Dental Instrument Maker Name Role Phone Hai PHOENIX, Rocael Valerio Primary Care Physician [phone] Encounter [facility] Date(s): 01/30/21 - 03/01/21 [facility] [address] [place] [id number] Allergies, Adverse Reactions, Alerts Substance Reaction Severity Status Soma Active Ingrezza Active Immunizations Given and Recorded Vaccine Date Status Refusal Reason pneumococcal 23-valent vaccine 09/20/18 Given Not Given Vaccine Date Status Refusal Reason influenza virus vaccine, inactivated 1 09/21/20 No t Given Patient Refuses 1Result Comment: pt already recieved flu shot Medications eplerenone 50 mg oral tablet 1 tablet = 50 mg, By Mouth, 2 times a day, 0 Refills, Maintenance, 10/28/20 12:06:00 EST, Partial fill upon patient request if the prescription is for a schedule II opioid drug. Start Date: 10/28/20 Status: Ordered ibuprofen 600 mg oral tablet [...] 2 Refills, Maintenance, 09/26/20 10:15:00 EST, Tablet, [facility] [address] [place] [address], Partial fill upon patient request if the prescription is for a schedule II... Start Date: 09/26/20 Status: Ordered olanzapine 5 mg oral tablet 5 mg, 1, tablet, By Mouth, 2 times a day, # 60 tablet, Refills 0, Tot. Refills 0, Maintenance, 09/26/20 10:16:00 EST, Route to Pharmacy Electronically, [facility] [address] [place] [address], Partial fill upon patient request if the prescriptio... Start Date: 09/26/20 Status: Ordered omeprazole 40 mg oral enteric coated capsule 1 capsule = 40 mg, By Mouth, Daily, # 90 capsule, 3 Refills, Maintenance, 02/24/21 13:24:00 EDT, ECCapsule, [facility] [address] [place] [address], Partial fill upon patient request if the prescription is for a schedule II opioid drug., 174, c... Start Date: 02/24/21 Status: Ordered ondansetron 4 mg oral tablet, disintegrating 1 tablet = 4 mg, By Mouth, Every 8 hours, PRN as needed for nausea/vomiting, # 8 tablet, 0 Refills,Maintenance, 10/28/20 17:50:00 EST, DIS Tablet, [facility] [address] [place] [address], Partial fill upon patient request if the prescription is... Start Date: 10/28/20 Status: Ordered sertraline 100 mg oral tablet 1 tablet = 100 mg, By Mouth, Daily, Take with 50 mg tabs for a total of 150 mg daily, # 30 tablet, 0 Refills, Maintenance, 09/26/20 10:59:00 EST, Tablet, [facility] [address] [place] [address], Partial fill upon patient request if the prescript... Start Date: 09/26/20 Status: Ordered sertraline 50 mg oral tablet 1 tablet = 50 mg, By Mouth, Daily, # 30 tablet, 0 Refills, Maintenance, 09/26/20 10:58:00 EST, Tablet, [facility] [address] [place] [address], Partial fill upon patient request if the prescription is for a schedule II opioid drug., 176, cm, ... Start Date: 09/26/20 Status: Ordered spironolactone 100 mg oral tablet 100 mg, 1, tablet, By Mouth, Daily, Refills 0, Maintenance, 10/28/20 12:05:00 EST, Partial fill upon patient request if the prescription is for a schedule II opioid drug. Start Date: 10/28/20 Status: Ordered traZODone 50 mg oral tablet 50 mg, 1, tablet, By Mouth, Daily at bedtime, Refills 0, Maintenance, 10/28/20 12:04:00 EST, Partial fill upon patient request if the prescription is for a schedule II opioid drug. Start Date: 10/28/20 Status: Ordered Xifaxan 550 mg oral tablet 1 tablet, By Mouth, 2 times a day, # 60 tablet, 5 Refills, Maintenance, 06/24/20 8:28:00 EDT, [facility], [facility], cm, 05/15/20 14:48:00 EDT, Height, 116.8, kg, 02/03/20 11:23:00 EDT, Dry Weight Start Date: 06/24/20 Status: Ordered Xifaxan 550 mg oral tablet 1 tablet = 550 mg, By Mouth, 2 times a day, # 180 tablet, 3 Refills, Maintenance, 01/10/21 12:51:00EDT, Tablet, [facility] [place], [place], Partial fill upon patient request if [...]
--- OUTSIDE RECORDS SUMMARY | 2024-01-03 10:40 | XMS_ITS | Continuity of Care Document ---
Author Organization [facility] Address [address] [place] [address]- Care Team Providers Care Research Anthropologist Name Role Phone Rocael Valles MD Primary Care Physician Encounter [facility] [place] Date(s): 05/19/23 - 06/18/23 [facility] [address] [place] [address]- [place] Allergies, Adverse Reactions, Alerts Substance Reaction [...] 1 Refills, Maintenance, 02/19/22 10:29:00 EDT, Syrup, [facility] [address] [place] [address], Partial fill upon patient request if the prescription is for a schedule II opioid drug., 30 mL By Mo... Start Date: 02/19/22 Status: Ordered Lasix 20 mg oral tablet 20 mg, 1, tablet, By Mouth, Daily, # 90 tablet, Refills 3, Tot. Refills 3, Maintenance, 01/25/23 15:34:00 EDT, Route to Pharmacy Electronically, [facility] [place], [place], Partialfill upon patient request if the [...] 1 Refills, Maintenance, 02/19/22 10:29:00 EDT, Tablet, [facility] [place], [place], Partial fill upon patient request if the prescript... Start Date: 02/19/22 Status: Ordered spironolactone 100 mg oral tablet 1, tablet, By Mouth, Daily, # 30 tablet, Refills 1, Maintenance, 05/24/23 14:10:00 EDT, Route to Pharmacy Electronically, [facility], 174, cm, 01/07/23 13:28:00 EDT, Height, 98, kg, 02/11/22 18:56:00 EDT, Dry Weight Start Date: 05/24/23 Status: Ordered Xifaxan 550 mg oral tablet 1 tablet = 550 mg, By Mouth, 2 times a day, # 180 tablet, 1 Refills, Maintenance, 01/25/23 15:35:00EDT, Tablet, [facility] [address] [place] [address], Partial fill upon patient request if the [...] Team Personnel Name: Génesis Underwood RN Position: S RN Member Role: Primary Care Nurse Name: Alessandra Albarran RN Position: S RN Member Role: Primary Care Nurse Name: Saad Sy RN Position: S RN Member Role: Primary Care Nurse Name: Shilpa Aguero RN Position: S RN Member Role: Primary Care Nurse Name: Ana M Vega RN Position: [facility] RN Member Role: Primary Care Nurse Name: Kim Adair RN Position: [facility] AMB Nurse Member Role: Primary Care Nurse Name: Rocael Valles MD Position: [facility] Physician - Primary Care Member Role: PCP Address: Address: [address] [place] [address], [address] [place] [address]- Name: Ana M Farnsworth RN Position: [facility] RN Member Role: Primary Care Nurse Care Team Related Persons Name: JAUNPABLO CARTER Address: [address] [place] [address]
--- OUTSIDE RECORDS SUMMARY | 2024-01-03 10:40 | XMS_ITS | Continuity of Care Document ---
Author Organization [facility] Address [address] [place] [address]- Care Team Providers Care Power Nut Runner Operator Name Role Phone Rocael Valles MD Primary Care Physician Encounter [facility] Date(s): 09/25/20 - 01/22/21 [facility] [address] [place] [id number] Attending Physician: Dominga Cárdenas MD Admitting Physician: Dominga Cárdenas MD Referring Physician: Rocael Valles MD Allergies, Adverse [...] 2 Refills, Maintenance, 09/26/20 10:15:00 EST, Tablet, [facility] [address] [place] [address], Partial fill upon patient request if the prescription is for a schedule II... Start Date: 09/26/20 Status: Ordered olanzapine 5 mg oral tablet 5 mg, 1, tablet, By Mouth, 2 times a day, # 60 tablet, Refills 0, Tot. Refills 0, Maintenance, 09/26/20 10:16:00 EST, Route to Pharmacy Electronically, [facility] [address] [place] [address], Partial fill upon patient request if the prescriptio... Start Date: 09/26/20 Status: Ordered ondansetron 4 mg oral tablet, disintegrating 1 tablet = 4 mg, By Mouth, Every 8 hours, PRN as needed for nausea/vomiting, # 8 tablet, 0 Refills,Maintenance, 10/28/20 17:50:00 EST, DIS Tablet, [facility] [address] [place] [address], Partial fill upon patient request if the prescription is... Start Date: 10/28/20 Status: Ordered sertraline 100 mg oral tablet 1 tablet = 100 mg, By Mouth, Daily, Take with 50 mg tabs for a total of 150 mg daily, # 30 tablet, 0 Refills, Maintenance, 09/26/20 10:59:00 EST, Tablet, [facility] [address] [place] [address], Partial fill upon patient request if the prescript... Start Date: 09/26/20 Status: Ordered sertraline 50 mg oral tablet 1 tablet = 50 mg, By Mouth, Daily, # 30 tablet, 0 Refills, Maintenance, 09/26/20 10:58:00 EST, Tablet, [facility] [address], [place], Partial fill upon patient request if the [...] tablet, 5 Refills, Maintenance, 06/24/20 8:28:00 [facility], cm, 05/15/20 14:48:00 EDT, Height, 116.8, kg, 02/03/20 11:23:00 EDT, Dry Weight Start Date: 06/24/20 Status: Ordered Xifaxan 550 mg oral tablet 1 tablet = 550 mg, By Mouth, 2 times a day, # 180 tablet, 3 Refills, Maintenance, 01/10/21 12:51:00EDT, Tablet, [facility] - [place], [place], Partial fill upon patient request if [...]
--- OUTSIDE RECORDS SUMMARY | 2024-01-03 10:40 | XMS_ITS | Continuity of Care Document ---
Author Organization [facility] Address [address] [place] [address]- Care Team Providers Care Prisoner Classification Interviewer Name Role Phone Hai PHOENIX, Rocael Valerio Primary Care Physician [facility] Date(s): 11/19/20 - 12/19/20 [facility] [address] [place] [id number] Attending Physician: Una Fuentes Admitting Physician: AdmUna de la cruz Referring Physician: AdmtrUna Allergies, Adverse Reactions, Alerts Substance Reaction Severity [...] 0, Maintenance, 01/16/19 13:52:27 EDT Start Date: 5/14/19 Status: Ordered LORazepam 0.5 mg oral tablet 1 tablet = 0.5 mg, By Mouth, 3 times a day, PRN for anxiety, # 30 tablet, 2 Refills, Maintenance, 09/26/20 10:15:00 EST, Tablet, [facility] [address] [place] [address], Partial fill upon patient request if the prescription is for a schedule II... Start Date: 09/26/20 Status: Ordered olanzapine 5 mg oral tablet 5 mg, 1, tablet, By Mouth, 2 times a day, # 60 tablet, Refills 0, Tot. Refills 0, Maintenance, 09/26/20 10:16:00 EST, Route to Pharmacy Electronically, [facility] [address] [place] [address], Partial fill upon patient request if the prescriptio... Start Date: 09/26/20 Status: Ordered ondansetron 4 mg oral tablet, disintegrating 1 tablet = 4 mg, By Mouth, Every 8 hours, PRN as needed for nausea/vomiting, # 8 tablet, 0 Refills,Maintenance, 10/28/20 17:50:00 EST, DIS Tablet, [facility] [address] [place] [address], Partial fill upon patient request if the prescription is... Start Date: 10/28/20 Status: Ordered sertraline 100 mg oral tablet 1 tablet = 100 mg, By Mouth, Daily, Take with 50 mg tabs for a total of 150 mg daily, # 30 tablet, 0 Refills, Maintenance, 09/26/20 10:59:00 EST, Tablet, [facility] [address] [place] [address], Partial fill upon patient request if the prescript... Start Date: 09/26/20 Status: Ordered sertraline 50 mg oral tablet 1 tablet = 50 mg, By Mouth, Daily, # 30 tablet, 0 Refills, Maintenance, 09/26/20 10:58:00 EST, Tablet, [facility] [address] [place], [place], Partial fill upon patient request if [...] tablet, 5 Refills, Maintenance, 06/24/20 8:28:00 EDT, [facility], cm, 05/15/20 14:48:00 EDT, Height, 116.8, [...]
--- OUTSIDE RECORDS SUMMARY | 2024-01-03 10:40 | XMS_ITS | Continuity of Care Document ---
Author Organization [facility] Address [address] [place] [address]- Care Team Providers Care Drying Room Attendant Name Role Phone Rocael Valles MD Primary Care Physician Encounter [facility] R [id number] Date(s): 05/25/23 - 08/04/23 [facility] [address] [place] [id number]- Attending Physician: Elder PHOENIX, Salomón Felder Admitting [...] 1 Refills, Maintenance, 02/19/22 10:29:00 EDT, Syrup, [facility] [address] [place], [place], Partial fill upon patient request if the prescription is for a schedule II opioid drug., 30 mL By Mo... Start Date: 02/19/22 Status: Ordered Lasix 20 mg oral tablet 20 mg, 1, tablet, By Mouth, Daily, # 90 tablet, Refills 3, Tot. Refills 3, Maintenance, 01/25/23 15:34:00 EDT, Route to Pharmacy Electronically, [facility] [address] [place], [place], Partialfill upon patient request if the [...] 1 Refills, Maintenance, 02/19/22 10:29:00 EDT, Tablet, [facility] [address] [place] [address], [place], Partial fill upon patient request if the prescript... Start Date: 02/19/22 Status: Ordered spironolactone 100 mg oral tablet 1, tablet, By Mouth, Daily, # 30 tablet, Refills 1, Tot. Refills 1, Maintenance, 07/25/23 10:30:00 EST, Route to Pharmacy Electronically, [facility] [address] [facility], [place], 172, cm, 06/14/23 13:53:00 EDT, Height, 106.8, kg, 06/14/23 13:53:... Start Date: 07/25/23 Status: Ordered Xifaxan 550 mg oral tablet 1 tablet = 550 mg, By Mouth, 2 times a day, # 180 tablet, 1 Refills, Maintenance, 01/25/23 15:35:00EDT, Tablet, [facility] [address] [place] [address], [place], Partial fill upon patient request if the [...] Care Nurse Name: Alessandra Albarran RN Position: [facility] RN Member Role: Primary Care Nurse Name: Saad Sy RN Position: [facility] RN Member Role: Primary Care Nurse Name: Shilpa Aguero RN Position: [facility] RN Member Role: Primary Care Nurse Name: Ana M Vega RN Position: [facility] RN Member Role: Primary Care Nurse Name: Kim Adair RN Position: [facility] AMB Nurse Member Role: Primary Care Nurse Name: Rocael Valles MD Position: [facility] Physician - Primary Care Member Role: PCP Address: Address: [address] [place] [address], [address] [place] [address]- Name: Ana M Farnsworth RN Position: [facility] RN Member Role: Primary Care Nurse Care Team Related Persons Name: JUANPABLO CARTER Address: [address] [place] [address]
--- OUTSIDE RECORDS SUMMARY | 2024-01-03 10:40 | XMS_ITS | Continuity of Care Document ---
Author Organization [facility] Address [address] [place] [address]- Care Team Providers Care Boat Builder Name Role Phone Hai PHOENIX, Rocael Valerio Primary Care Physician [phone] Encounter [facility] Date(s): 05/18/22 - 06/17/22 [facility] [address] [place] [address]- [place] Allergies, Adverse Reactions, Alerts Substance Reaction Severity Status Soma Active Ingrezza Active Immunizations Given and Recorded Vaccine Date Status Refusal Reason pneumococcal 23-valent vaccine 09/20/18 Given Not Given Vaccine Date Status Refusal Reason influenza virus vaccine, inactivated 1 09/21/20 No t Given Patient Refuses 1Result Comment: pt already recieved flu shot Medications clonazePAM 0.5 mg oral tablet 1 [...] 1 Refills, Maintenance, 02/19/22 10:29:00 EDT, Syrup, [facility] [address] [place], [place], Partial fill upon patient request if the prescription is for a schedule II opioid drug., 30 mL By Mo... Start Date: 02/19/22 Status: Ordered Lasix 20 mg oral tablet 20 mg, 1, tablet, By Mouth, Daily, # 30 tablet, Refills 1, Tot. Refills 1, Maintenance, 02/19/22 10:29:00 EDT, Route to Pharmacy Electronically, [facility] [address] [place], [place], Partialfill upon patient request if the prescription is fo... Start Date: 02/19/22 Status: Ordered lidocaine 5% topical film See Instructions, apply 2 patchesTopically Daily, # 60 patch, 1 Refills, Maintenance, 02/19/22 10:28:00 EDT, Patch, [facility] [address] [place] [address], Partial fill upon patient request ifthe prescription is for a schedule II opioid drug.,... Start Date: 02/19/22 Status: Ordered Nexium 40 mg oral enteric coated capsule 1 capsule = 40 mg, By Mouth, Daily, # 90 capsule, 3 Refills, Maintenance, 04/15/22 13:09:00 EDT, ECCapsule, [facility] [address] [place] [address], Partial fill upon patient request if the prescription is for a schedule II opioid drug., 174, c... Start Date: 04/15/22 Status: Ordered Protonix 40 mg oral delayed release tablet 1 tablet = 40 mg, By Mouth, 2 times a day, # 60 tablet, 1 Refills, Maintenance, 02/19/22 10:29:00 EDT, [facility] Tablet, 174, cm, 02/19/22 9:31:00 EDT, Height, 98, kg, 02/11/22 18:56:00 EDT, Dry Weight Start Date: 02/19/22 Stop Date: 04/20/22 Status: Ordered sertraline 100 mg oral tablet 1 tablet = 100 mg, By Mouth, Daily, Take with 50 mg tabs for a total of 150 mg daily, # 30 tablet, 1 Refills, Maintenance, 02/19/22 10:29:00 EDT, Tablet, [facility] [address] [place] [address], [place], Partial fill upon patient request if the prescript... Start Date: 02/19/22 Status: Ordered sertraline 50 mg oral tablet 1 tablet = 50 mg, By Mouth, Daily, # 30 tablet, 1 Refills, Maintenance, 02/19/22 10:29:00 EDT, Tablet, [facility] [address] [place] [address], [place], Partial fill upon patient request if the prescription is for a schedule II opioid drug., 174, cm, ... Start Date: 02/19/22 Status: Ordered spironolactone 100 mg oral tablet 100 mg, 1, tablet, By Mouth, Daily, # 30 tablet, Refills 1, Tot. Refills 1, Maintenance, 02/19/22 10:29:00 EDT, Route to Pharmacy Electronically, [facility] - [place], [place], Partial fill upon patient request if the prescription is f... Start Date: 02/19/22 Status: Ordered Problem List Condition Confirmation Course Effective Dates Status Health St [facility] Informant Bipolar disorder Confirmed Active Obese class I Confirmed Active Psychosis Confirmed Active Tardive dyskinesia Confirmed Active Hepatitis-C Confirmed Active Social History Social History Type Response Smoking Status Former smoker, quit more than 30 days ago entered on: 05/22/19 Sex Patient Care team information Personnel Name: Hai PHOENIX, Rocael Valerio Address: Address: [address] [place] [address], [address] [facility] [place], [place] [address]
--- OUTSIDE RECORDS SUMMARY | 2024-01-03 10:40 | XMS_ITS | Continuity of Care Document ---
Author Organization [facility] Address [address] [place] [address]- Care Team Providers Care Client Customer Manager Name Role Phone Hai PHOENIX, Rocael Valerio Primary Care Physician [phone] Encounter [facility] Date(s): 01/09/21 - 02/08/21 [facility] [address] [place] [address] [id number] Attending Physician: Una Fuentes Admitting Physician: Una Fuentes Referring Physician: Una Fuentes Referring Physician: Génesis Chang [place] Allergies, Adverse [...] 09/26/20 10:15:00 EST, Tablet, [facility] [address] [place], [place], Partial fill upon patient request if the prescription is for a schedule II... Start Date: 09/26/20 Status: Ordered olanzapine 5 mg oral tablet 5 mg, 1, tablet, By Mouth, 2 times a day, # 60 tablet, Refills 0, Tot. Refills 0, Maintenance, 09/26/20 10:16:00 EST, Route to Pharmacy Electronically, [facility], [place], Partial fill upon patient request if the prescriptio... Start Date: 09/26/20 Status: Ordered ondansetron 4 mg oral tablet, disintegrating 1 tablet = 4 mg, By Mouth, Every 8 hours, PRN as needed for nausea/vomiting, # 8 tablet, 0 Refills,Maintenance, 10/28/20 17:50:00 EST, DIS Tablet, [facility] [facility], [place], Partial fill upon patient request if the prescription is... Start Date: 10/28/20 Status: Ordered sertraline 100 mg oral tablet 1 tablet = 100 mg, By Mouth, Daily, Take with 50 mg tabs for a total of 150 mg daily, # 30 tablet, 0 Refills, Maintenance, 09/26/20 10:59:00 EST, Tablet, [facility] [address] [place] [address], Partial fill upon patient request if the prescript... Start Date: 09/26/20 Status: Ordered sertraline 50 mg oral tablet 1 tablet = 50 mg, By Mouth, Daily, # 30 tablet, 0 Refills, Maintenance, 09/26/20 10:58:00 EST, Tablet, [facility] [address] [place], [place], Partial fill upon patient request if [...] tablet, 5 Refills, Maintenance, 06/24/20 8:28:00 EDT[facility], cm, 05/15/20 14:48:00 EDT, Height, 116.8, kg, 02/03/20 11:23:00 EDT, Dry Weight Start Date: 06/24/20 Status: Ordered Xifaxan 550 mg oral tablet 1 tablet = 550 mg, By Mouth, 2 times a day, # 180 tablet, 3 Refills, Maintenance, 01/10/21 12:51:00EDT, Tablet, [facility] [place], [place], Partial fill upon patient request if [...]
--- OUTSIDE RECORDS SUMMARY | 2024-01-03 10:40 | XMS_ITS | Continuity of Care Document ---
Author Organization [facility] Address [address] [place] [address]- Care Team Providers Care Porcelain Enamel Installer Name Role Phone Hai PHOENIX, Rocael Valerio Primary Care Physician Encounter [facility] Date(s): 09/12/20 - 10/12/20 [facility] [address] [place] [id number] Allergies, Adverse Reactions, Alerts Substance Reaction Severity Status Soma Active Ingrezza Active Immunizations Given and Recorded Vaccine Date Status Refusal Reason pneumococcal 23-valent vaccine 09/20/18 Given Not Given Vaccine Date Status Refusal Reason influenza virus vaccine, inactivated 1 09/21/20 No t Given Patient Refuses 1Result Comment: pt already recieved flu shot Medications bisacodyl 10 mg rectal suppository 1 supp [...] opioid drug. Start Date: 09/23/20 Status: Ordered lactulose 10 gm/15 ml oral [...] 10:15:00 EST, Tablet, [facility] [facility], [place], Partial fill upon patient request if the prescription is for a schedule II... Start Date: 09/26/20 Status: Ordered Melatonin = 6 mg, By [...] 09/26/20 10:16:00 EST, Route to Pharmacy Electronically, [facility] [facility], [place], Partial fill upon patient request if the prescriptio... Start Date: 09/26/20 Status: Ordered sertraline 100 mg oral tablet 1 tablet = 100 mg, By Mouth, Daily, Take with 50 mg tabs for a total of 150 mg daily, # 30 tablet, 0 Refills, Maintenance, 09/26/20 10:59:00 EST, Tablet, [facility] [facility], [place], Partial fill upon patient request if the prescript... Start Date: 09/26/20 Status: Ordered sertraline 50 mg oral tablet 1 tablet = 50 mg, By Mouth, Daily, # 30 tablet, 0 Refills, Maintenance, 09/26/20 10:58:00 EST, Tablet, [facility] [facility], [place], Partial fill upon patient request if the prescription is for a schedule II opioid drug., 176, cm, ... Start Date: 09/26/20 Status: Ordered Xifaxan 550 mg oral tablet 1 tablet, By Mouth, 2 times a day, # 60 tablet, 5 Refills, Maintenance, 06/24/20 8:28:00 EDT, [facility], 175, cm, 05/15/20 14:48:00 EDT, Height, [...]
--- OUTSIDE RECORDS SUMMARY | 2024-01-03 10:40 | XMS_ITS | Continuity of Care Document ---
Author Organization [facility] Address [address] [place] [address]- Care Team Providers Care Airconditioning Plant Operator Name Role Phone Rocael Valles MD Primary Care Physician [phone] Encounter [facility] Date(s): 08/21/20 - 12/19/20 [facility] [address] [place] [phone]- Attending Physician: Dominga Cárdenas MD Referring Physician: Rocael [...] 2 Refills, Maintenance, 09/26/20 10:15:00 EST, Tablet, [facility] [address] [place] [address], Partial fill upon patient request if the prescription is for a schedule II... Start Date: 09/26/20 Status: Ordered olanzapine 5 mg oral tablet 5 mg, 1, tablet, By Mouth, 2 times a day, # 60 tablet, Refills 0, Tot. Refills 0, Maintenance, 09/26/20 10:16:00 EST, Route to Pharmacy Electronically, [facility] [address] [place], [place], Partial fill upon patient request if the prescriptio... Start Date: 09/26/20 Status: Ordered ondansetron 4 mg oral tablet, disintegrating 1 tablet = 4 mg, By Mouth, Every 8 hours, PRN as needed for nausea/vomiting, # 8 tablet, 0 Refills,Maintenance, 10/28/20 17:50:00 EST, DIS Tablet, [facility] [address] [place] [address], Partial fill upon patient request if the prescription is... Start Date: 10/28/20 Status: Ordered sertraline 100 mg oral tablet 1 tablet = 100 mg, By Mouth, Daily, Take with 50 mg tabs for a total of 150 mg daily, # 30 tablet, 0 Refills, Maintenance, 09/26/20 10:59:00 EST, Tablet, [facility] [address] [place] [address], Partial fill upon patient request if the prescript... Start Date: 09/26/20 Status: Ordered sertraline 50 mg oral tablet 1 tablet = 50 mg, By Mouth, Daily, # 30 tablet, 0 Refills, Maintenance, 09/26/20 10:58:00 EST, Tablet, [facility] [address] [place], [place], Partial fill upon patient request if [...] tablet, 5 Refills, Maintenance, 06/24/20 8:28:00 EDT, [facility], [facility], cm, 05/15/20 14:48:00 EDT, Height, [...]
--- OUTSIDE RECORDS SUMMARY | 2024-01-03 10:40 | XMS_ITS | Continuity of Care Document ---
Author Organization [facility] Address [address] [place] [address]- Care Team Providers Care Towel Distributor Name Role Phone Hai PHOENIX, Rocael Valerio Primary Care Physician [phone] [place] [facility] [place] 07/05/23 - 08/04/23 [facility] [address] [place] [address]- Attending Physician: Una Fuentes Admitting Physician: Una Fuentes Referring Physician: Una Fuentes Allergies, Adverse Reactions, Alerts Substance Reaction Severity [...] 1 Refills, Maintenance, 02/19/22 10:29:00 EDT, Syrup, [facility] [address] [place] [address], Partial fill upon patient request if the prescription is for a schedule II opioid drug., 30 mL By Mo... Start Date: 02/19/22 Status: Ordered Lasix 20 mg oral tablet 20 mg, 1, tablet, By Mouth, Daily, # 90 tablet, Refills 3, Tot. Refills 3, Maintenance, 01/25/23 15:34:00 EDT, Route to Pharmacy Electronically, [facility] [place], [place], Partialfill upon patient request if the [...] 10:29:00 EDT, Tablet, [facility], [place], Partial fill upon patient request if the prescript... Start Date: 02/19/22 Status: Ordered spironolactone 100 mg oral tablet 1, tablet, By Mouth, Daily, # 30 tablet, Refills 1, Tot. Refills 1, Maintenance, 07/25/23 10:30:00 EST, Route to Pharmacy Electronically, [facility], [place], 172, cm, 06/14/23 13:53:00 EDT, Height, 106.8, kg, 06/14/23 13:53:... Start Date: 07/25/23 Status: Ordered Xifaxan 550 mg oral tablet 1 tablet = 550 mg, By Mouth, 2 times a day, # 180 tablet, 1 Refills, Maintenance, 01/25/23 15:35:00EDT, Tablet, [facility] [address] [place] [address], [place], Partial fill upon patient request if the [...] Team Personnel Name: Génesis Underwood RN Position: [facility] RN Member Role: Primary Care Nurse Name: Alessandra Albarran RN Position: [facility] RN Member Role: Primary Care Nurse Name: Saad Sy RN Position: [facility] RN Member Role: Primary Care Nurse Name: Shilpa Aguero RN Position: [facility] RN Member Role: Primary Care Nurse Name: Ana M Vega RN Position: [facility] RN Member Role: Primary Care Nurse Name: Kim Adair RN Position: [facility] AMB Nurse Member Role: Primary Care Nurse Name: Rocael Valles MD Position: [facility] Physician - Primary Care Member Role: PCP Address: Address: [address] [place] [address], [address] [facility] [place] [address]- Name: Ana M Farnsworth RN Position: [facility] RN Member Role: Primary Care Nurse Care Team Related Persons Name: JUANPABLO CARTER Address: [address] [place] [address]
--- OUTSIDE RECORDS SUMMARY | 2024-01-03 10:41 | XMS_ITS | Continuity of Care Document ---
Author Organization [facility] Address [address] [place] [id number]- Care Team Providers Care Domain Architect Name Role Phone Rocael Valles MD Primary Care Physician [phone] Encounter [facility] [place] Date(s): 03/18/23 - 06/18/[address] [id number] Attending Physician: Troy Jackman DO Allergies, Adverse Reactions, Alerts Substance Reaction Severity [...] 1 Refills, Maintenance, 02/19/22 10:29:00 EDT, Syrup, [facility] [address] [place] [address], Partial fill upon patient request if the prescription is for a schedule II opioid drug., 30 mL By Mo... Start Date: 02/19/22 Status: Ordered Lasix 20 mg oral tablet 20 mg, 1, tablet, By Mouth, Daily, # 90 tablet, Refills 3, Tot. Refills 3, Maintenance, 01/25/23 15:34:00 EDT, Route to Pharmacy Electronically, [facility] [place], [place], Partialfill upon patient request if the [...] 10:29:00 EDT, Tablet, [facility], [place], Partial fill upon patient request if the prescript... Start Date: 02/19/22 Status: Ordered spironolactone 100 mg oral tablet 1, tablet, By Mouth, Daily, # 30 tablet, Refills 1, Maintenance, 05/24/23 14:10:00 EDT, Route to Pharmacy Electronically, [facility], 174, cm, 01/07/23 13:28:00 EDT, Height, 98, kg, 02/11/22 18:56:00 EDT, Dry Weight Start Date: 05/24/23 Status: Ordered Xifaxan 550 mg oral tablet 1 tablet = 550 mg, By Mouth, 2 times a day, # 180 tablet, 1 Refills, Maintenance, 01/25/23 15:35:00EDT, Tablet, [facility], [place], Partial fill upon patient request if the [...] Care Nurse Name: Saad Sy RN Position: [facility] RN Member Role: Primary Care Nurse Name: Shilpa Aguero RN Position: [facility] RN Member Role: Primary Care Nurse Name: Ana M Vega RN Position: [facility] RN Member Role: Primary Care Nurse Name: Kim Adair RN Position: [facility] AMB Nurse Member Role: Primary Care Nurse Name: Rocael Valles MD Position: [facility] Physician - Primary Care Member Role: PCP Address: Address: [address] [address], [address] [place] [address]- Name: Ana M Farnsworth RN Position: [facility] RN Member Role: Primary Care Nurse Care Team Related Persons Name: ADELA CARTERE Address: [address] [place] [address]
--- OUTSIDE RECORDS SUMMARY | 2024-01-03 10:41 | XMS_ITS | Continuity of Care Document ---
Author Organization [facility] Address [address], [address], [address] [place] [address]- Care Team Providers Care Stripper Cutter Machine Name Role Phone Rocael Valles MD Primary Care Physician [phone] Encounter [facility] Date(s): 03/16/21 - 04/15/21 [facility] [address], [address], [address] [place] [id number] Attending Physician: Una Fuentes Admitting Physician: Admtr, Ar8 Referring Physician: Admtr, Ar8 Allergies, Adverse Reactions, Alerts Substance Reaction Severity [...] 03/05/21 12:26:00 EDT, Route to Pharmacy Electronically, [facility] - [place], [place],Partial fill upon patient request if the prescripti... [...] Daily, # 30 tablet, Refills 0, Maintenance, 05/14/19 13:52:27 EDT Start Date: 01/16/19 Status: Ordered LORazepam 0.5 mg oral tablet 1 tablet = 0.5 mg, By Mouth, 3 times a day, PRN for anxiety, # 30 tablet, 2 Refills, Maintenance, 09/26/20 10:15:00 EST, Tablet, [facility] [place] [address] [place] [address], Partial fill upon patient request if the prescription is for a schedule II... Start Date: 09/26/20 Status: Ordered omeprazole 40 mg oral enteric coated capsule 1 capsule = 40 mg, By Mouth, Daily, # 90 capsule, 3 Refills, Maintenance, 02/24/21 13:24:00 EDT, ECCapsule, [facility] [place] [address] [place] [address], Partial fill upon patient request if the prescription is for a schedule II opioid drug., 174, c... Start Date: 02/24/21 Status: Ordered sertraline 100 mg oral tablet 1 tablet = 100 mg, By Mouth, Daily, Take with 50 mg tabs for a total of 150 mg daily, # 30 tablet, 0 Refills, Maintenance, 09/26/20 10:59:00 EST, Tablet, [facility] [place] [address] [place] [address], Partial fill upon patient request if the prescript... Start Date: 09/26/20 Status: Ordered sertraline 50 mg oral tablet 1 tablet = 50 mg, By Mouth, Daily, # 30 tablet, 0 Refills, Maintenance, 09/26/20 10:58:00 EST, Tablet, [facility] [place] [address] [place] [address], Partial fill upon patient request if the [...] tablet, 3 Refills, Maintenance, 01/10/21 12:51:00EDT, Tablet, [facility] - [place], [place], Partial fill upon patient request if [...]
--- OUTSIDE RECORDS SUMMARY | 2024-01-03 10:41 | XMS_ITS | Continuity of Care Document ---
Author Organization [facility] Address [address] [place] [address]- Care Team Providers Care Insulation And Flooring Assembler Name Role Phone Hai PH[place], Rocael Valerio Primary Care Physician Encounter [facility] [place] Date(s): 04/30/21 - 05/30/21 [facility] [address] [place] [address]- [place] Allergies, Adverse Reactions, Alerts Substance Reaction [...] 03/05/21 12:26:00 EDT, Route to Pharmacy Electronically, [facility] [place] [address],Partial fill upon patient request if the prescripti... Start Date: 03/05/21 Status: Ordered famotidine 40 mg oral tablet 1 tablet = 40 mg, By Mouth, 2 times a day, # 60 tablet, 2 Refills, Maintenance, 05/19/21 9:06:00 EDT, Tablet, [facility] [address] [place] [address], Partial fill upon patient request if the prescription is for a schedule II opioid drug., 173,... Start Date: 05/19/21 Stop Date: 08/17/21 Status: Ordered lactulose 10 gm/15 ml oral [...] 10:15:00 EST, Tablet, [facility], [place], Partial fill upon patient request if the prescription is for a schedule II... Start Date: 09/26/20 Status: Ordered omeprazole 40 mg oral enteric coated capsule 1 capsule = 40 mg, By Mouth, 2 times a day, # 180 capsule, 2 Refills, Maintenance, 05/01/21 14:56:00 EDT, EC Capsule, [facility], [place], Partial fill upon patient request if the prescription is for a schedule II opioid drug... Start Date: 05/01/21 Status: Ordered Protonix 40 mg oral delayed release tablet 1 tablet = 40 mg, By Mouth, 2 times a day, # 60 tablet, 5 Refills, Maintenance, 05/08/21 9:05:00 EDT, EC Tablet, 173, cm, 05/08/21 8:29:00 EDT, Height, 104.9, kg, 03/09/21 12:19:00 EDT, Dry Weight Start Date: 05/08/21 Stop Date: 11/04/21 Status: Ordered sertraline 100 mg oral tablet 1 tablet = 100 mg, By Mouth, Daily, Take with 50 mg tabs for a total of 150 mg daily, # 30 tablet, 0 Refills, Maintenance, 09/26/20 10:59:00 EST, Tablet, [facility], [place], Partial fill upon patient request if the prescript... Start Date: 09/26/20 Status: Ordered sertraline 50 mg oral tablet 1 tablet = 50 mg, By Mouth, Daily, # 30 tablet, 0 Refills, Maintenance, 09/26/20 10:58:00 EST, Tablet, [facility], [place], Partial fill upon patient request if the [...] tablet, 3 Refills, Maintenance, 01/10/21 12:51:00EDT, Tablet, [facility] - [place], [place], Partial fill upon patient request if [...]
[2024-01-03 11:17] VITALS: BMI 36.8
--- NOTE | 2024-01-03 11:21 | HO.ANESPROP2 ---
PMF Active Problems Active Problems: All Active Problems Diarrhea (Acute) Portal vein thrombosis (Acute) Bloating (Acute) Hepatitis C (Acute) Cirrhosis (Acute) Elevated LFTs (Acute) tardiv dyskinesia Past Medical History Medical History Tardive dyskinesia Surgical History Surgical History History of esophagogastroduodenoscopy (EGD) H/O colonoscopy History of Problems with Anesthesia: No Social History Social History Alcohol intake: former Patient Tobacco Use Status: Former Tobacco user Use of substances other than those prescribed or required for medical reasons: No Advance Directives: No Advance Directives Information Provided: Yes Meds Allergies Allergy/AdvReac Type Severity Reaction Status Date / Time carisoprodol [From [facility]] Allergy Unknown VOMITING Verified 01/02/24 11:11 Home Medications ?Medication ?Instructions ?Recorded ?Confirmed ?Last Taken ?Type furosemide 20 mg tablet 20 mg PO DAILY 10/11/23 01/03/24 Unknown History lorazepam 1 mg tablet 1 mg PO TID PRN Anxiety 10/11/23 01/03/24 Unknown History rifaximin 550 mg tablet (Xifaxan) 550 mg PO BID 10/11/23 01/03/24 Unknown History sertraline 100 mg tablet 100 mg PO DAILY 10/11/23 01/03/24 Unknown History spironolactone 100 mg tablet 100 mg PO DAILY 10/11/23 01/03/24 Unknown History lactulose 10 gram/15 mL oral PO 01/02/24 Unknown History solution Exam Height,Weight and Vital Signs: Height 5 ft 8 in Weight 109.769 kg Airway Mallampati Class: II (edentulous) TM Dist: >3cm Neck ROM: Full Loose/Missing/Broken Teeth: Yes, Upper and Lower Heart: RRR Lungs: CTA Assessment and Plan Assessment Anesthesia Assessment: Anesthesia Plan Discussed and Chart Reviewed Final Anesthetic Review History of Problems with Anesthesia: No NPO: Yes ASA Class: III Final Preanesthetic Review: Meds/Allgs Chart Reviewed, Consent Obtained/Reviewed and Anes Risks/Benef Reviewed Patient Risk: Intermediate Procedure Risk: Intermediate Anesthetic Plan Anesthetic Plan: MAC: Disposition: Standard PACU
[2024-01-03 11:36] VITALS: BP 131/86; PULSE 88; RESP 18; TEMP 36.1; O2SAT 96; BMI 36.8
--- NOTE | 2024-01-03 12:30 | MHC.SHP ---
Pre-Procedural Eval Section A - 24 Hr Update-Section A only Date of Service: 01/03/24 The patient is an INPATIENT: No The patient has been examined within 24 hours of the surgical procedure. The History & Physical has been completed within 30 days and I have reviewed it.: Yes Section B - Complete if H&P > 30 days Chief Complaint: cirrhosis Allergies: Allergies Allergy/AdvReac Type Severity Reaction Status Date / Time carisoprodol [From [facility]] Allergy Unknown VOMITING Verified 01/02/24 11:11 Plan Diagnosis/Plan: Unchanged I have reviewed the history and physical and performed a pertinent physical examination on my patient. No changes have occurred unless specified. Time Spent With Patient Time: Total time managing care of this patient today ____ minutes.
--- NOTE | 2024-01-03 12:38 | P.OP_ITS ---
Operative Note Operative Note Date of Service: 01/03/24 Narrative: Procedure: Esophagogastroduodenoscopy Endoscopist: Dilia Hernandez MD Indication: Cirrhosis, portal vein thrombosis r/o varices Anesthesia Provider: Christian Riley CRNA Anesthesia Type: MAC ?? EGD Procedure:?? The procedure, indications, preparation and potential complications were reviewed with the patient, who indicated understanding and gave written informed consent to proceed. A physical exam was performed. The endoscope was introduced through the mouth, and advanced to the second part of duodenum. The mucosa was carefully examined on slow withdrawal of the endoscope. The patient tolerated the procedure well. There were no immediate complications.? ? EGD Findings:? * Esophagus:? Normal mucosa noted in the entire esophagus. No esophageal varices were noted. The Z line was at 38 cm. Large hiatal hernia was noted. * Stomach:? Normal mucosa was noted in the stomach. Erythema and scant heme noted throughout the stomach consistent with erosive gastritis however underlying portal hypertensive gastropathy not ruled out. Cold forceps biopsies were taken. * Duodenum:? Patchy erythema and erosions were noted in the duodenal bulb. Remaining mucosa was normal in the whole of the examined duodenum. EGD Impressions:? * Normal esophagus * Hiatal hernia * Gastritis (biopsy) * Duodenitis ?? Recommendations:?? * Follow biopsy results. Our office will call or send a letter with results within 7-10 days. * Start PPI BID * Anticoagulation to begin in 2 weeks after starting PPI * Avoid NSAIDs. Above has been reviewed with the patient.
[2024-01-03 13:09] VITALS: BP 131/70; PULSE 50; RESP 16; TEMP 36.9; O2SAT 98
[2024-01-03 13:25] VITALS: BP 135/65; PULSE 56; RESP 16; O2SAT 93
[2024-01-03 13:40] VITALS: BP 143/65; PULSE 54; RESP 16; TEMP 37; O2SAT 96
== END 2024-01-03 14:16 | disposition home or self-care (01) ==
PROVIDERS: PCP Internal Medicine; Visit Provider Internal Medicine
PROC: 0DJ08ZZ Inspection of Upper Intestinal Tract, Via Natural or Artificial Opening Endoscopic (ICD-10-PCS; CPT 43235; principal; 2024-01-03 13:50)
DX: K74.60 Unspecified cirrhosis of liver (principal); K29.70 Gastritis, unspecified, without bleeding; K29.80 Duodenitis without bleeding; K44.9 Diaphragmatic hernia without obstruction or gangrene; I81 Portal vein thrombosis; B18.2 Chronic viral hepatitis C
CPT/HCPCS: 43239; 88305; 88313; 88342; J2405; J2704; J3010

== ENCOUNTER → 2024-01-03 10:38 | Outpatient (BNV) | payer MEDICARE, MEDICAID, SELFPAY | PROVIDERS: PCP Internal Medicine; Visit Provider Internal Medicine | DX: K29.70 Gastritis, unspecified, without bleeding (principal); K29.80 Duodenitis without bleeding | CPT/HCPCS: 43239 ==

== ENCOUNTER 2024-01-18 12:47 | Outpatient (AMB) | payer MEDICARE, MEDICAID, SELFPAY ==
--- NOTE | 2024-01-18 12:50 | MHC.OFFVIS ---
Vital Signs 01/18/24 12:53 Height 5 ft 8 in Weight 238 lb 1.588 oz BMI 36.2 BP 119/83 Blood Pressure Location Lt brachial Position Sitting Pulse 78 Intake Visit Reasons: S/P EGD; Dr. Hernandez Intake Note: Arnold presents in the office as a follow up EGD. CC: He states that the EGD did not do anything for him but the medication was kicking his butt for a week and a half. He ended up falling - he feels it might be related to the omeprazole. He is good now and has been for 3 days. Allergies carisoprodol [From [facility]] Allergy (Unknown, Verified 01/18/24 12:53) VOMITING HPI Comments Details: This is a 68-year-old gentleman who has been referred by his primary care provider for reported history of chronic hepatitis-C and cirrhosis. 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 Pt reports having a longstanding hx of chronic HCV which he likely contracted through either IVDU or blood transfusion in the 1970s. Was treated in 2014 by his PCP with reported SVR. With this he resultantly had cirrhosis, also had etOH use in the background. Records from [facility] reviewed. EGD 06/14/2023 (Dr. Jackman): Irregularity at squamous columnar junction. Gastritis. Normal duodenum. Normal biopsies, no H pylori. EGD/colonoscopy 10/08/2019 (Dr. Moore): Grade 1 varices. Gastritis. Normal duodenal. Diverticulosis. Rectal polyps. Internal hemorrhoids. Hyperplastic polyps. No H pylori. Ultrasound elastography 07/24/2023: Coarse hepatic echotexture. No suspicious lesion. Nodular hepatic contour. Portal vein with hepatopetal flow. CBD 5 mm. Liver stiffness 10.6 correlating with known cirrhosis. Today, his main complaint is abdominal discomfort and bloating that gets progressively worse during the day. Has not identified any dietary triggers. Reports has been present intermittently since 2014. 11/28/23: Here for urgent follow up as called reporting pt has severe sx and may not survive due to severity of abd pain. Pt seen in presence of . Reports sx are unchanged in the last 3 years and have not gotten worse. Reports daily bloating which is worse in mid day. Patient not able to articulate if symptoms are different or worse from previous visit on 10/11/2023. has been trying charcoal capsules to improve diarrhea, but patient reports that stools have become significantly harder, and seem a bit darker as well. 01/02/24: Here for follow up after cipro trial. Reports no improvement with ABx. Most of the frequent BMs are in the morning. First BM is normal and then the following 3-4 BMs are loose. Takes lactulose twice a day. Has the runs after taking the second dose of lactulose. US Abd reviewed- appears to have a partial thrombus in PV. Flow normal. From prev US done at [facility], no PVT was reported. No varices or PHG reported on EGD 06/2023 at [facility]. 01/03/24 Normal esophagus Hiatal hernia Gastritis (biopsy) Duodenitis Path: Diagnosis Stomach, random, biopsy: Gastric antral and body mucosa with congestion and focal minimal chronic inactive inflammation; negative for intestinal metaplasia and dysplasia. Comment: H pylori stain pending; addendum to follow. 01/18/24: Here for follow-up with his . Reports initially felt a bit loopy with the omeprazole for the 1st week, but now getting used to it. Had a fall as well last week. For the last 3 days, feeling better, and in fact his abdominal pain has also resolved. EGD results reviewed. Patient continues on omeprazole b.i.d.. Reassured no H pylori. [facility] Medical History Tardive dyskinesia Surgical History History of esophagogastroduodenoscopy (EGD) H/O colonoscopy Social History Alcohol intake: former Patient Tobacco Use Status: Former Tobacco user Review of Systems Const All systems reviewed & are unremarkable except as noted in HPI and below Physical Exam Vital Signs: Last Vital Signs Pulse 78 01/18/24 12:53 BP 119/83 01/18/24 12:53 BMI result Body Mass Index 36.2 No acute distress Nonicteric Abdomen soft, nontender, mildly distended Assessment & Plan Assessment & Plan (1) Cirrhosis: Code(s): K74.60 - Unspecified cirrhosis of liver Category: Medical (2) Bloating: Code(s): R14.0 - Abdominal distension (gaseous) Category: Medical (3) Portal vein thrombosis: Code(s): I81 - Portal vein thrombosis Category: Medical Plan #HCV cirrhosis: #Partial PVT No evidence of chronic hepatitis-C infection. Remains in SVR. Also does not appear to have any CSPH based on clinical assessment. Plan was to start anticoagulation, however given fall risk, will defer this as risks outweighs the benefit at this time. Will monitor the partial PVT with another ultrasound in 3 months. If progressing, can review indication for anticoagulation at that time. Plan: -US abdomen with Doppler in 3 months #Abd pain and bloating: Resolved. Follow-up after 3 months Orders: Orders US abdomen complete 3 Months I81 - Portal vein thrombosis Coding Level of Care Code Est Pt Level 3 (50533) Diagnoses Cirrhosis K74.60 Bloating R14.0 Portal vein thrombosis I81
[2024-01-18 12:53] VITALS: BP 119/83; PULSE 78; BMI 36.2
== END 2024-01-18 13:43 | disposition home or self-care (01) ==
PROVIDERS: PCP Internal Medicine; Visit Provider Internal Medicine
DX: K74.60 Unspecified cirrhosis of liver (principal); R14.0 Abdominal distension (gaseous); I81 Portal vein thrombosis
CPT/HCPCS: 99213

== ENCOUNTER → 2024-01-18 12:47 | Outpatient (BNVA) | payer MEDICARE, MEDICAID, SELFPAY | PROVIDERS: PCP Internal Medicine; Visit Provider Internal Medicine | DX: K74.60 Unspecified cirrhosis of liver (principal); R14.0 Abdominal distension (gaseous); I81 Portal vein thrombosis | CPT/HCPCS: 99212 ==

== ENCOUNTER 2024-03-30 10:31 | Outpatient (AMB) | payer MEDICARE, MEDICAID, SELFPAY ==
--- NOTE | 2024-03-30 10:33 | A.OFFVIS_ITS ---
Vital Signs 03/30/24 10:41 Height 5 ft 8 in Weight 231 lb 7.766 oz BMI 35.2 BP 145/107 H Blood Pressure Location Lt brachial Position Sitting Pulse 53 Intake Visit Reasons: Urgent FUV pt req. Hiatal hernia mgmt. Intake Note: Arnold presents in the office as a follow up for management to his hiatal hernia. CC: He states that he was told he has a large hernia. 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 Hiatal hernia mgmt.: Details: 68 yr old m here for f/u 1/ Possible early cirrhosis, hx of Hep C treatment and cure 2014 Labs are fairly normal, nml plts and INR, nml LFT ? partial PVT seen on US 2/ Large hiatal hernia noted on US he has feeling of epigastric blaoting and discomfort, sometimes dysphagia he has had discomfort for 3 yrs or so has tried numerous PPI without relief EXAM: GENERAL: The patient is well developed and nontoxic. tardive dyskinesia VITAL SIGNS:see workflow HEENT: Nonicteric sclerae, PERRLA, EOMI. Oropharynx clear. Moist mucous membranes. Conjunctivae appear well perfused. No thyroid mass. CHEST: Chest wall is nontender. HEART: Regular rate and rhythm without murmurs. LUNGS: Clear to auscultation bilaterally. ABDOMEN: Soft, positive bowel sounds, nontender, no organomegaly.no flank tenderness SKIN: No rash, no excessive bruising, petechiae, or purpura. no spiders NEUROLOGIC: Cranial nerves II-XII intact without motor/sensory deficit. Psych: normal affect A/P: 1/ Possible PVT and cirrhosis, but labs are good, uncertain if he really has cirrhosis 2/ Hiatal hernia and possible sx related to this PLAN: 1/ CT triple phase assess liver in more detail and PV 2/ Ba swallow, depending on this might need thoracic surg referral [facility] Medical History Tardive dyskinesia Surgical History History of esophagogastroduodenoscopy (EGD) H/O colonoscopy Social History Alcohol intake: former Patient Tobacco Use Status: Former Tobacco user Physical Exam Vital Signs: Last Vital Signs Pulse 53 03/30/24 10:41 BP 145/107 H 03/30/24 10:41 BMI result Body Mass Index 35.2 Assessment & Plan Assessment & Plan (1) Portal vein thrombosis: Code(s): I81 - Portal vein thrombosis Category: Medical Plan: see above (2) Cirrhosis: Code(s): K74.60 - Unspecified cirrhosis of liver Category: Medical Plan: see above Orders: Orders CT abdomen wo/w IV con Today I81 - Portal vein thrombosis FL barium swallow Today R13.10 - Dysphagia, unspecified Coding Level of Care Code Est Pt Level 4 (87048) Diagnoses Portal vein thrombosis I81 Cirrhosis K74.60
[2024-03-30 10:41] VITALS: BP 145/107; PULSE 53; BMI 35.2
== END 2024-03-30 11:19 | disposition home or self-care (01) ==
PROVIDERS: PCP Internal Medicine; Visit Provider Internal Medicine Gastroenterology
DX: I81 Portal vein thrombosis (principal); K74.60 Unspecified cirrhosis of liver
CPT/HCPCS: 99214

== ENCOUNTER → 2024-03-30 10:31 | Outpatient (BNVA) | payer MEDICARE, MEDICAID, SELFPAY | PROVIDERS: PCP Internal Medicine; Visit Provider Internal Medicine Gastroenterology | DX: I81 Portal vein thrombosis (principal); K74.60 Unspecified cirrhosis of liver | CPT/HCPCS: 99212 ==

== ENCOUNTER 2024-04-05 11:22 | Outpatient (REF) | payer MEDICARE, MEDICAID, SELFPAY ==
--- NOTE | ~2024-04-05 | US_ITS ---
EXAMINATION: US duplex arterial venous, limited CLINICAL INFORMATION: Portal vein thrombosis COMPARISON: Ultrasound from 12/28/2023 TECHNIQUE: Real-time imaging of the abdominal viscera. Color and spectral Doppler evaluation of the hepatic vasculature. FINDINGS: LIVER: Normal. The liver demonstrates normal size, contour and echogenicity. No focal liver lesion. No intrahepatic biliary duct dilatation. SPLENIC VEIN: Not visualized, prior splenectomy HEPATIC VEINS: Patent with normal waveforms. PORTAL VEINS: Intrahepatic and extrahepatic main portal vein is occluded. This appears progressed compared to the prior exam. Flow within the intrahepatic portal veins as difficult to visualize especially on the right. HEPATIC ARTERIES: Normal upstroke and diastolic flow. INFERIOR VENA CAVA: Patent with normal waveforms. PANCREAS: Normal. The visualized pancreatic head and body are normal in appearance. The remainder of the pancreas is obscured from visualization by the overlying bowel gas. SPLEEN: Status post splenectomy. ABDOMINAL AORTA: The visualized proximal segment is normal in caliber. INFERIOR VENA CAVA: Visualized portions are normal. FREE FLUID: None. US/US duplex arterial venous comp IMPRESSION: Intrahepatic and extrahepatic main portal vein is occluded which appears progressed compared to the prior exam. Flow within the intrahepatic portal veins is difficult to visualize especially on the right.
== END 2024-04-05 11:23 | disposition home or self-care (01) ==
LOC: HO.US 11:22
PROVIDERS: PCP Internal Medicine; Visit Provider Internal Medicine
DX: I81 Portal vein thrombosis (principal)
CPT/HCPCS: 93975

== ENCOUNTER 2024-05-11 08:20 | Outpatient (REF) | payer MEDICARE, MEDICAID, SELFPAY ==
--- NOTE | ~2024-05-11 | FL_ITS ---
EXAMINATION: XR FLUOROSCOPY UPPER GI WITH AIR CLINICAL INFORMATION: Dysphagia. Large hiatal hernia seen on EGD. COMPARISON: None TECHNIQUE: Fluoroscopic air contrast upper GI examination was performed utilizing standard techniques with thin and thick barium and effervescent granules. Numerous spot images were obtained. FINDINGS: Lateral cine images of the oropharynx and hypopharynx demonstrate normal swallow mechanism with normal epiglottic inversion and soft palate elevation. There is laryngeal penetration with thick consistency barium. No tracheal penetration, glottic or subglottic aspiration identified. No nasopharyngeal reflux present. Hypopharyngeal structures appear normal without evidence of mass or diverticulum. 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 Dual and single contrast images of the esophagus demonstrate a mildly patulous esophagus. No evidence of stricture, mass, or ulcerations identified. Esophageal peristalsis is moderately disorganized No evidence of hiatus hernia identified. No significant gastroesophageal reflux was seen during the course of the examination and on reflux views. Dual contrast and single contrast images of the stomach demonstrated a normal contour. There are multiple foci of contrast pooling in the body and fundus of the stomach that likely represent small superficial apthous ulcers. Contrast freely passed into the gastric antrum and duodenal bulb without delay. Single and air-contrast images of the duodenal bulb demonstrate no abnormality. The duodenal sweep has a normal appearance, course, and mucosal fold appearance. The imaged proximal jejunum has a normal fold pattern and caliber. FLUOROSCOPY TIME: 4 minutes 20 seconds Number of Spot Images: 8 Number of Cine: 13 DOSE AREA PRODUCT: 3207 uGy-m2 (microgray-meter squared) FL/FL barium swallow IMPRESSION: 1. Laryngeal penetration with thick barium. No aspiration was observed. 2. Mild to moderate cricopharyngeal achalasia. 3. Mildly patulous esophagus with moderately disorganized peristalsis consistent with esophageal motility. 4. Multiple foci of contrast pooling in the body and fundus the stomach that likely represent small superficial aphthous ulcers. Recommend correlation with EGD. 5. No evidence of hiatal hernia on this examination. This procedure was performed by Vicente Aquino PA-C, and supervised by Dr. Marin Electronically signed by: Ramo Marin MD 05/11/2024 03:50 PM EDT
== END 2024-05-11 08:21 | disposition home or self-care (01) ==
LOC: HO.XRAY 08:20
PROVIDERS: PCP Internal Medicine; Visit Provider Internal Medicine Gastroenterology
DX: R13.10 Dysphagia, unspecified (principal)
CPT/HCPCS: 74220

== ENCOUNTER → 2024-05-11 08:23 | Outpatient (BNV) | payer MEDICARE, MEDICAID, SELFPAY | PROVIDERS: PCP Internal Medicine; Visit Provider Radiology Diagnostic Radiology | DX: R13.10 Dysphagia, unspecified (principal) | CPT/HCPCS: 74246 ==

== ENCOUNTER 2024-05-22 10:58 | Outpatient (REF) | payer MEDICARE, MEDICAID, SELFPAY ==
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
[2024-05-22] MEDS: iohexoL 350 MG/ML 100 ML INFUS..BTL 85 ML IV (12:11)
[2024-05-23 11:22] LABS: Creatinine POC 0.9 mg/dL (0.5-1.4); GFR POC > 60
== END 2024-05-22 10:59 | disposition home or self-care (01) ==
LOC: HO.CT 10:58
PROVIDERS: PCP Internal Medicine; Visit Provider Internal Medicine Gastroenterology
DX: I81 Portal vein thrombosis (principal)
CPT/HCPCS: 74170; 82565; Q9967

== ENCOUNTER 2024-05-25 12:20 | Outpatient (AMB) | payer MEDICARE, MEDICAID, SELFPAY ==
--- NOTE | 2024-05-25 12:26 | MHC.OFFVIS ---
Vital Signs 05/25/24 12:30 Height 5 ft 8 in Weight 235 lb BMI 35.7 BP 113/64 Blood Pressure Location Lt brachial Position Sitting Pulse 60 Intake Visit Reasons: appointment r/s from 05/14/24 Intake Note: Patient follow up for Cirrhosis and CT scan, BS and US results. Patient cc: abdominal pain with bloating, heartburn, swallowing problems even with liquid. 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 partial PVT seen on US 2/ Large hiatal hernia? on EGD he has feeling of epigastric blaoting and discomfort, sometimes dysphagia he has had discomfort for 3 yrs or so has tried numerous PPI without relief Ba swallow: 05/11/24 cricopharyngeal achalasia no hiatal hernia seen CT Liver: non specific LN no liver lesion no PVT --patent veins splenectomy noted INTERIM: Ongoing issues with dysphagia no chest pain no abdominal pain EXAM: GENERAL: The patient is well developed and nontoxic. tardive dyskinesia VITAL SIGNS:see workflow HEENT: Nonicteric sclerae, PERRLA, EOMI. Oropharynx clear. Moist mucous membranes. Conjunctivae appear well perfused. No thyroid mass. CHEST: Chest wall is nontender. HEART: Regular rate and rhythm without murmurs. LUNGS: Clear to auscultation bilaterally. ABDOMEN: Soft, positive bowel sounds, nontender, no organomegaly.no flank tenderness SKIN: No rash, no excessive bruising, petechiae, or purpura. no spiders NEUROLOGIC: Cranial nerves II-XII intact without motor/sensory deficit. Psych: normal affect A/P: 1/ Possible early cirrhosis with no mass lesions, non specific LN, 2/ Dysphagia from cricothyroid achalasia or poss dysmotility PLAN: 1/ EGD and dilation 2/ repeat Liver imaging in 6 months or so, will repeat CT triple phase [facility] Medical History Tardive dyskinesia Surgical History History of esophagogastroduodenoscopy (EGD) H/O colonoscopy Social History Alcohol intake: former Patient Tobacco Use Status: Former Tobacco user Physical Exam Vital Signs: Last Vital Signs Pulse 60 05/25/24 12:30 BP 113/64 05/25/24 12:30 BMI result Body Mass Index 35.7 Assessment & Plan Assessment & Plan (1) Gastritis and duodenitis: Code(s): K29.90 - Gastroduodenitis, unspecified, without bleeding Category: Medical Plan dysphagia Medications: Refilled omeprazole 20 mg PO BID 90 days 180 caps 3RF K29.90 - Gastroduodenitis, unspecified, without bleeding Coding Level of Care Code Est Pt Level 3 (57783) Diagnoses Gastritis and duodenitis K29.90
[2024-05-25 12:30] VITALS: BP 113/64; PULSE 60; BMI 35.7
== END 2024-05-25 13:04 | disposition home or self-care (01) ==
PROVIDERS: PCP Internal Medicine; Visit Provider Internal Medicine Gastroenterology
DX: K29.90 Gastroduodenitis, unspecified, without bleeding (principal)
CPT/HCPCS: 99213

== ENCOUNTER → 2024-05-25 12:20 | Outpatient (BNVA) | payer MEDICARE, MEDICAID, SELFPAY | PROVIDERS: PCP Internal Medicine; Visit Provider Internal Medicine Gastroenterology | DX: K29.90 Gastroduodenitis, unspecified, without bleeding (principal) | CPT/HCPCS: 99212 ==

== ENCOUNTER 2024-08-22 11:01 | Day surgery (SDC) | payer MEDICARE, MEDICAID, SELFPAY ==
[2024-08-20 14:22] VITALS: BMI 35.7
--- NOTE | 2024-08-21 12:32 | P.CONAN_ITS ---
Documented by User: Ellie Patterson NP 08/21/24 12:36 HPI - Anesthesia Eval Consult details Narrative: 68yo M for Upper Endoscopy s/p same 12/2023 with TIVA Per GI Possible early cirrhosis, hx of Hep C treatment and cure 2014 Labs are fairly normal, nml plts and INR, nml LFT ? partial PVT seen on US [facility] Active Problems Active Problems: All Active Problems Gastritis and duodenitis (Acute) Diarrhea (Acute) Portal vein thrombosis (Acute) Bloating (Acute) Hepatitis C (Acute) Cirrhosis (Acute) Elevated LFTs (Acute) Past Medical History Medical History (Updated 08/21/24 @ 11:43 by Gabbi Villalta RN) Hepatitis C Cirrhosis Tardive dyskinesia Surgical History Surgical History History of esophagogastroduodenoscopy (EGD) H/O colonoscopy History of Problems with Anesthesia: No Social History Social History Alcohol intake: former Patient Tobacco Use Status: Current someday Tobacco user Tobacco use type: Cigarette Cigarettes Per Day: 1 Use of substances other than those prescribed or required for medical reasons: Yes Are you DNR?: No Advance Directives: No Advance Directives Information Provided: Yes Meds Allergies Allergy/AdvReac Type Severity Reaction Status Date / Time carisoprodol [From [facility]] Allergy Unknown VOMITING Verified 08/22/24 11:13 Home Medications ?Medication ?Instructions ?Recorded ?Confirmed ?Last Taken ?Type furosemide 20 mg tablet 20 mg PO DAILY 10/11/23 08/22/24 08/22/24 07:00 History lorazepam 1 mg tablet 1 mg PO TID PRN Anxiety 10/11/23 08/22/24 08/22/24 07:00 History rifaximin 550 mg tablet (Xifaxan) 550 mg PO BID 10/11/23 08/22/24 08/22/24 07:00 History sertraline 100 mg tablet 100 mg PO DAILY 10/11/23 08/22/24 08/22/24 07:00 History spironolactone 100 mg tablet 100 mg PO DAILY 10/11/23 08/22/24 Unknown History lactulose 10 gram/15 mL oral PO 01/02/24 Unknown History solution lcyevaup-ev-vsjzi 300 mcg-K 60 1 tab PO DAILY 01/18/24 08/22/24 08/22/24 07:00 History mcg-lycop 600 mcg-lutein 300 mcg tablet (Centrum Silver Men) Exam Height,Weight and Vital Signs: Height 5 ft 8 in Weight 106.594 kg Narrative Narrative: CT abdomen wo/w IV con 05/2024 IMPRESSION: 1. The intra and extrahepatic portal vein segments appear patent. The superior mesenteric vein is patent. The splenic vein is surgically absent. 2. The spleen is surgically absent. 3. There is a microlobulated appearance of the spleen, which can be seen in association with cirrhosis. 4. A 6 mm gallbladder polyp versus adherent calculus is seen, stable from the ultrasound appearance of 01/01/2024. 5. There are mildly enlarged celiac axis and periportal lymph nodes. These are nonspecific and require clinical correlation. Recommend continued attention on imaging follow-up. 6. There are metallic fragments and possible organized hematoma adjacent to the posterior left 10th rib. Please correlate with the patient's Past Medical History. Assessment and Plan Assessment Anesthesia Assessment: Chart Reviewed Final Anesthetic Review History of Problems with Anesthesia: No Documented by User: Vivek Zavala MD 08/22/24 11:50 [facility] Past Medical History Medical History (Updated 08/21/24 @ 11:43 by Gabbi Villalta RN) Hepatitis C Cirrhosis Tardive dyskinesia Family History Family history of problems with anesthesia: No Surgical History Surgical History History of esophagogastroduodenoscopy (EGD) H/O colonoscopy Social History Social History Alcohol intake: former Patient Tobacco Use Status: Current someday Tobacco user Tobacco use type: Cigarette Cigarettes Per Day: 1 Use of substances other than those prescribed or required for medical reasons: Yes Are you DNR?: No Advance Directives: No Advance Directives Information Provided: Yes Meds Allergies Allergy/AdvReac Type Severity Reaction Status Date / Time carisoprodol [From [facility]] Allergy Unknown VOMITING Verified 08/22/24 11:13 Home Medications ?Medication ?Instructions ?Recorded ?Confirmed ?Last Taken ?Type furosemide 20 mg tablet 20 mg PO DAILY 10/11/23 08/22/24 08/22/24 07:00 History lorazepam 1 mg tablet 1 mg PO TID PRN Anxiety 10/11/23 08/22/24 08/22/24 07:00 History rifaximin 550 mg tablet (Xifaxan) 550 mg PO BID 10/11/23 08/22/24 08/22/24 07:00 History sertraline 100 mg tablet 100 mg PO DAILY 10/11/23 08/22/24 08/22/24 07:00 History spironolactone 100 mg tablet 100 mg PO DAILY 10/11/23 08/22/24 Unknown History lactulose 10 gram/15 mL oral PO 01/02/24 Unknown History solution tfpmuekx-av-wgfrn 300 mcg-K 60 1 tab PO DAILY 01/18/24 08/22/24 08/22/24 07:00 History mcg-lycop 600 mcg-lutein 300 mcg tablet (Centrum Silver Men) Exam Airway Mallampati Class: I TM Dist: <=3cm Neck ROM: Full Denture: Upper and Lower Heart: ok Lungs: okq Assessment and Plan Assessment Anesthesia Assessment: Anesthesia Plan Discussed Final Anesthetic Review Family History of Problems with Anesthesia: No NPO: Yes ASA Class: III Final Preanesthetic Review: No Changes in Pt Med Stat, Meds/Allgs Chart Reviewed, Consent Obtained/Reviewed and Anes Risks/Benef Reviewed Patient Risk: Intermediate Procedure Risk: Intermediate Anesthetic Plan Anesthetic Plan: Agree w/ Assess. and Plan and TIVA Disposition: Standard PACU
[2024-08-22 11:15] VITALS: BMI 35.7
[2024-08-22 11:24] VITALS: BP 134/69; PULSE 61; RESP 16; TEMP 36.3; O2SAT 95
--- NOTE | 2024-08-22 11:44 | MHC.SHP ---
Pre-Procedural Eval Section A - 24 Hr Update-Section A only Date of Service: 08/22/24 Section B - Complete if H&P > 30 days Chief Complaint: Portal vein thrombosis,cirrhosis of liver Details of Present Illness: dysphagia Relevant Family History (Specify if Yes): No Relevant Social History: None Present Medications: see Short Stay Collaborative assessment Medical History: Significant History ( Hepatitis C Cirrhosis Tardive dyskinesia) History of Previous Operations: Relevant previous surgery/procedure and date(s) (History of esophagogastroduodenoscopy (EGD) H/O colonoscopy) Allergies: Allergies Allergy/AdvReac Type Severity Reaction Status Date / Time carisoprodol [From [facility]] Allergy Unknown VOMITING Verified 08/22/24 11:13 Review of Systems Sugical H&P ROS: Negative: Constitution, Cardiovascular, Respiratory, Neurological, Psychiatric, Hem-Onc, Allergic/Immunologic, Gastrointestinal, Genitourinary, Musculoskeletal, Integumentary, Endocrine and Eyes/Ears/Nose/Throat Exam Surgical H&P Exam: Normal: HEENT, Normal: Heart, Normal: Lungs, Normal: Extremities, Normal: Abdomen, Normal: Skin and Normal: Neurological Plan Diagnosis/Plan: Unchanged I have reviewed the history and physical and performed a pertinent physical examination on my patient. No changes have occurred unless specified. Time Spent With Patient Time: Total time managing care of this patient today ____ minutes.
--- NOTE | 2024-08-22 12:10 | W.PM.OPN ---
Operative Note Operative Note Date of Service: 08/22/24 Narrative: Procedure Description: EGD Indication: dysphagia Anesthesia: MAC FLEXIBLE TRANSORAL UPPER GASTROINTESTINAL ENDOSCOPY UPPER ENDOSCOPY Consent: Indications for the procedure and potential complications of bleeding, perforation, reaction to medications and missed diagnosis were discussed with the patient and informed consent was obtained. Instrument: Olympus GIF H 190 J mid size upper endoscope Monitoring: Vital signs and clinical assessment, continuous EKG monitoring, Pulse oximetry, Carbon Dioxide monitoring and blood pressure monitoring were done throughout the procedure. Procedure: The patient was placed in the left lateral decubitis position and pre-procedure medications were administered and a bite block was placed. The endoscope was inserted into the mouth and advanced under direct vision to the third part of duodenum. A careful inspection was made as the upper endoscope was withdrawn including a retroflexed examination of the proximal stomach; Findings and interventions are described below. Findings: Larynx:normal Esophagus: GE junction at 38 cm, diaphragm hiatus at 38 cm, mild esophagitis, balloon dilation to 20 mm at UES, no tears seen - no varices seen Stomach: patchy erythema . Biopsies were obtained. Grade 2 flap valve on retroflexed examination of the cardia. Pylorus was tight, dilated with balloon to 18 mm, no tears seen Duodenum: Normal bulb and descending duodenum, Intervention: Biopsies as noted above, balloon dilation Impression/Findings: gastritis esophagitis PLAN: rept EGD in 2-3 yrs or earlier if indicated for variceal screening GERD precautions check PPI compliance
[2024-08-22 12:18] VITALS: BP 126/68; PULSE 59; RESP 16; TEMP 36.1; O2SAT 96
[2024-08-22 12:33] VITALS: BP 104/59; PULSE 63; RESP 16; TEMP 36.3; O2SAT 96
== END 2024-08-22 12:59 | disposition home or self-care (01) ==
PROVIDERS: PCP Internal Medicine; Visit Provider Internal Medicine Gastroenterology
PROC: 0DJ08ZZ Inspection of Upper Intestinal Tract, Via Natural or Artificial Opening Endoscopic (ICD-10-PCS; CPT 43235; principal; 2024-08-22 13:30)
DX: R13.10 Dysphagia, unspecified (principal); K20.80 Other esophagitis without bleeding; K29.50 Unspecified chronic gastritis without bleeding; K29.90 Gastroduodenitis, unspecified, without bleeding; K44.9 Diaphragmatic hernia without obstruction or gangrene; G24.01 Drug induced subacute dyskinesia; K74.60 Unspecified cirrhosis of liver; I81 Portal vein thrombosis; Z86.19 Personal history of other infectious and parasitic diseases; Z79.899 Other long term (current) drug therapy; Z88.8 Allergy status to other drugs, medicaments and biological substances; F17.210 Nicotine dependence, cigarettes, uncomplicated
CPT/HCPCS: 43249; 43245; 43239; 88305; 88342; C1726; J2003; J2704

== ENCOUNTER → 2024-08-22 11:01 | Outpatient (BNV) | payer MEDICARE, MEDICAID, SELFPAY | PROVIDERS: PCP Internal Medicine; Visit Provider Internal Medicine Gastroenterology | DX: R13.10 Dysphagia, unspecified (principal); K21.00 Gastro-esophageal reflux disease with esophagitis, without bleeding; K29.70 Gastritis, unspecified, without bleeding | CPT/HCPCS: 43239; 43249 ==

== ENCOUNTER 2024-10-08 10:42 | Outpatient (AMB) | payer MEDICARE, MEDICAID, SELFPAY ==
--- NOTE | 2024-10-08 10:45 | A.OFFVIS_ITS ---
Vital Signs 10/08/24 10:47 Height 5 ft 8 in Weight 230 lb BMI 35.0 Intake Visit Reasons: Stomach Pains Intake Note: Arnold presents in the office as a follow up for stomach pains. CC: states that he has some issues swallowing and pains in the stomach. He has some constipation and diarrhea. Allergies carisoprodol [From [facility]] Allergy (Unknown, Verified 10/08/24 10:46) VOMITING HPI HPI Stomach Pains: Details: 69 yr old m here for f/u 1/ Possible early cirrhosis, hx of Hep C treatment and cure 2014 Labs are fairly normal, nml plts and INR, nml LFT ? partial PVT seen on US 2/ Large hiatal hernia? on EGD he has feeling of epigastric blaoting and discomfort, sometimes dysphagia he has had discomfort for 3 yrs or so has tried numerous PPI without relief Ba swallow: 05/11/24 cricopharyngeal achalasia no hiatal hernia seen CT Liver: 05/[address] no liver lesion no PVT --patent veins splenectomy noted EGD: 08/28 dilation, esophagitis and gastritis noted INTERIM: dysphagia is much improved he has issues with bloating not better with rifaximin no chest pain no abdominal pain EXAM: GENERAL: The patient is well developed and nontoxic. tardive dyskinesia VITAL SIGNS:see workflow HEENT: Nonicteric sclerae, PERRLA, EOMI. Oropharynx clear. Moist mucous membranes. Conjunctivae appear well perfused. No thyroid mass. CHEST: Chest wall is nontender. HEART: Regular rate and rhythm without murmurs. LUNGS: Clear to auscultation bilaterally. ABDOMEN: Soft, positive bowel sounds, nontender, no organomegaly.no flank tenderness SKIN: mild bruising on hands. no spiders NEUROLOGIC: Cranial nerves II-XII intact without motor/sensory deficit. Psych: normal affect A/P: 1/ Possible early cirrhosis with no mass lesions, non specific LN, 2/ Dysphagia from cricothyroid achalasia or poss dysmotility 3/ bloating, on and off PLAN: 1/ EGD for variceal screening in 1-2 yrs 2/ will repeat CT triple phase 3/ needs Hep A,B vaccines 4/ trial of cipro 5/ check labs [facility] Medical History Hepatitis C Cirrhosis Tardive dyskinesia Surgical History History of esophagogastroduodenoscopy (EGD) H/O colonoscopy Social History Alcohol intake: former Patient Tobacco Use Status: Current someday Tobacco user Tobacco use type: Cigarette Cigarettes Per Day: 1 Physical Exam Vital Signs: BMI result Body Mass Index 35.0 Assessment & Plan Assessment & Plan (1) Cirrhosis: Code(s): K74.60 - Unspecified cirrhosis of liver Category: Medical Plan: see above Orders: Orders CT abdomen wo/w IV con Today K74.60 - Unspecified cirrhosis of liver Complete Blood Count Auto Diff Today K74.60 - Unspecified cirrhosis of liver Comprehensive Met. Panel Today K74.60 - Unspecified cirrhosis of liver, K75.81 - Nonalcoholic steatohepatitis (ORONA) Prothrombin Time INR Today K74.60 - Unspecified cirrhosis of liver Medications: New ciprofloxacin HCl 500 mg PO BID 28 tabs 0RF Coding Level of Care Code Est Pt Level 4 (45718) Diagnoses Cirrhosis K74.60
[2024-10-08 10:47] VITALS: BMI 35.0
== END 2024-10-08 11:15 | disposition home or self-care (01) ==
PROVIDERS: PCP Internal Medicine; Visit Provider Internal Medicine Gastroenterology
DX: Z23 Encounter for immunization (principal); K74.60 Unspecified cirrhosis of liver
CPT/HCPCS: 99214

== ENCOUNTER → 2024-10-08 10:42 | Outpatient (BNVA) | payer MEDICARE, MEDICAID, SELFPAY | PROVIDERS: PCP Internal Medicine; Visit Provider Internal Medicine Gastroenterology | DX: Z23 Encounter for immunization (principal); K74.60 Unspecified cirrhosis of liver | CPT/HCPCS: 90471; 90632; 90746; 99212 ==

== ENCOUNTER 2024-11-07 14:02 | Outpatient (AMB) | payer MEDICARE, MEDICAID, SELFPAY ==
--- NOTE | 2024-11-07 14:20 | AM.OFFVISNUR ---
Intake Visit Reasons: Hep B #2 Allergies carisoprodol [From [facility]] Allergy (Unknown, Verified 10/08/24 10:46) VOMITING Immunizations Engerix-B (PF) 20 mcg/mL intramuscular suspension Performing Provider: Ivonne Land MD [place] [facility] [place] [facility] Administered by: Laila Garcia RN on 11/07/24 14:20 Dose Route Admin Location Dispensed Lot Number Expiration Date [facility] Call Center Specialist 1 mL IM Left Deltoid 1 mL [id number] 10/18/26 [id number] [employer] VIS Given Date VIS Provided VIS Publication Date 11/07/24 Single Vaccine 23 Eligibility Eligibility Date Funding Source Not [facility] Eligible 11/07/24 Private Assessment & Plan Assessment & Plan Orders: Orders Hepatitis B Adult Immunization Today Z23 - Encounter for immunization Medications: New Engerix-B (PF) (hepatitis B virus vacc.rec(PF)) 1 mL IM ONCE 1 mL 0RF NS Z23 - Encounter for immunization Coding Level of Care Code Established Pt Est Pt Level 1 (97581) Patient Type Established Medical Decision Making Straight Forward
--- OUTSIDE RECORDS SUMMARY | 2024-11-07 16:55 | XMS_ITS | Clinical Summary ---
Author Organization [facility] Address [address] [place] [address] Care Team Providers Care Quality Control Expert Name Role Phone Unavailable Primary Care Provider Unavailabl e Social History Tobacco Use Types Packs/Day Years Used Date Smoking Tobacco: Never Assessed Sex and Gender Information Value Date Recorded Sex Assigned at Not on file Gender Identity Not on file Sexual Orientation Not on file Plan of Treatment Health Maintenance Due Date Last Done Comments Hepatitis C Virus Screening 1955 DTaP/Tdap/Td Vaccines (1 - Tdap) 1975 Colonoscopy 2001 Pneumococcal Vaccines 50+ (1 of 1 - PCV) 2006 Zoster (Shingles) Vaccine (1 of 2) 2006 Influenza Vaccine 04/05/2024 COVID-19 Vaccine ( - 2023-2 5 season) 2024 RSV Vaccine 60 years and old er and Patients (1 - 1-dose 75+ series) 2031 Hepatitis B Vaccines Aged Out No long er eligible based on patient's age to complete this topic
--- OUTSIDE RECORDS SUMMARY | 2024-11-07 16:55 | XMS_ITS | Clinical Summary ---
Author Organization [facility] Address [address] [place] [address] Phone Care Team Providers Care Industrial Gas Fitter Name Role Phone Rocael Valles MD Primary Care Provider [phone] Medications lactulose (Generlac) solution Take 30 mL by mouth 2 times DAILY 05/01/2019 Active Social History Tobacco Use Types Packs/Day Years Used Date Smoking Tobacco: Never Assessed Sex and Gender Information Value Date Recorded Sex Assigned at Not on file Legal Sex Male 10:42 AM EST Gender Identity Not on file Sexual Orientation Not on file Plan of Treatment Upcoming Encounters Date Type Department Care Team ([facility] Contact Info) Description 11/22/2024 2:30 PM EDT Consult Orthopedic Surgery - [place] [address] [phone] Logan Montano, DPM [address] [address] Health Maintenance Due Date Last Done Comments DTaP,Tdap,and Td Vaccines (1 - Tdap) 1975 Pneumococcal Vaccine: 50+ Ye ars (1 of 1 - PCV) 2006 Zoster Vaccines (1 of 2) 2006 COVID-19 Vaccine ( - 2023-2 5 season) 2024 Influenza Vaccine (#1) 2024 Abdominal Aortic Aneurysm (A AA) Screen 09/20/2024 Cholesterol Screening (Lipid Panel) 09/20/2024 Colorectal Cancer Screening: Colonoscopy 09/20/2024 Depression Screening 09/20/2024 Falls Risk Assessment 09/20/2024 Hepatitis C Screening 09/20/2024 Medicare Annual Wellness Visit 09/20/2024 Social Influencers of Health Screening 09/20/2024 RSV Immunization Patients 60 + Years Old (1 - 1-dose 75+ series) 2031 HIB Vaccines Aged Out No longer eligi ble based on patient's age to complete this topic HPV Vaccines Aged Out No longer eligi ble based on patient's age to complete this topic Hepatitis A Vaccines Aged Out No long er eligible based on patient's age to complete this topic Hepatitis B Vaccines Aged Out No long er eligible based on patient's age to complete this topic IPV Vaccines Aged Out No longer eligi ble based on patient's age to complete this topic MMR Vaccines Aged Out No longer eligi ble based on patient's age to complete this topic Meningococcal ACWY Vaccine Aged Out N o longer eligible based on patient's age to complete this topic Meningococcal B Vacine Aged Out No lo nger eligible based on patient's age to complete this topic RSV Immunization Patients Un lauri 20 months Aged Out No longer eligible b ased on patient's age to complete this topic Varicella Vaccines Aged Out No longer eligible based on patient's age to complete this topic Insurance MEDICARE MEDICAID - [place] Care Teams Industrial Gas Fitter Relationship Specialty Start Date End Date Rocael Valles MD [address] [facility] [address] [place], [place] PCP - General Internal Medicine 02/11/15
--- OUTSIDE RECORDS SUMMARY | 2024-11-07 16:55 | XMS_ITS | Clinical Summary ---
Author Organization [facility] Address [address] [address] Care Team Providers Care Clinical Trial Associate Name Role Phone Unavailable Primary Care Provider Unavailabl e Social History Tobacco Use Types Packs/Day Years Used Date Smoking Tobacco: Never Assessed Sex and Gender Information Value Date Recorded Sex Assigned at Not on file Legal Sex Male 4:51 PM EST Gender Identity Not on file Sexual Orientation Not on file Plan of Treatment Health Maintenance Due Date Last Done Comments Colorectal Cancer Screening: Annual FOBT 2005 Colorectal Cancer Screening: Colonoscopy 2005 Colorectal Cancer Screening: Sigmoidoscopy 2005 Pneumococcal Vaccine: 65+ Ye ars (1 of 1 - PCV) 2021 Influenza Vaccine (#1) 2024 Hepatitis B Vaccine Aged Out No longe r eligible based on patient's age to complete this topic
== END 2024-11-07 14:22 | disposition home or self-care (01) ==
PROVIDERS: PCP Internal Medicine; Visit Provider Internal Medicine Gastroenterology
DX: Z23 Encounter for immunization (principal)

== ENCOUNTER → 2024-11-07 14:02 | Outpatient (BNVA) | payer MEDICARE, MEDICAID, SELFPAY | PROVIDERS: PCP Internal Medicine; Visit Provider Internal Medicine Gastroenterology | DX: Z23 Encounter for immunization (principal) | CPT/HCPCS: 90471; 90746; 99211 ==

== ENCOUNTER 2024-11-19 13:37 | Outpatient (REF) | payer MEDICARE, MEDICAID, SELFPAY ==
[2024-11-19 13:59] LABS: Basophils Absolute Auto 0.1 X10*3/uL (0.0-0.2); Basophils Percent Auto 0.6 % (0-2); Eosinophils Absolute Auto 0.2 X10*3/uL (0.0-0.4); Hematocrit 46.2 % (42.0-52.0); Hemoglobin 16.4 g/dl (14.0-18.0); Imm Gran Abs Auto 0.01 X10*3/uL (0.00-0.03); Imm Gran Pct Auto 0.1 % (0.0-0.4); Lymphocytes Absolute Auto 5.2 X10*3/uL (1.2-4.9); Lymphocytes Percent Auto 46.5 % (20-40); MANUAL DIFF FLAG SCAN; Mean Corpuscular HGB Conc 35.5 g/dl (31.0-36.0); Mean Platelet Volume 9.6 fL (9.4-12.4); Monocytes Absolute Auto 1.1 X10*3/uL (0.1-1.2); Monocytes Percent Auto 9.8 % (2-11); Neutrophils Absolute Auto 4.6 x10*3/uL (2.0-8.3); Platelet Count 320 X10*3/uL (160-400); Red Blood Count 4.97 X10*6/uL (4.60-5.80); Red Cell Distribution Width 13.2 % (11.0-16.0); SCAN SMEAR FLAG 1; White Blood Count 11.3 X10*3/uL (4.8-10.8)
[2024-11-19 14:06] LABS: Prothrombin Time 11.4 SEC (10.9-12.4)
[2024-11-19 14:23] LABS: SLIDE REVIEW VERIFIED
[2024-11-19 14:26] LABS: Alanine Aminotransferase 16 U/L (0-40); Albumin Level 4.2 g/dL (3.5-5.0); Alkaline Phosphatase 70 U/L (39-117); Anion Gap 9 (12-20); Aspartate Amino Transferase 31 U/L (5-37); Bilirubin Direct 0.2 mg/dL (0.0-0.5); Bilirubin Total 0.5 mg/dL (0.0-1.0); Blood Urea Nitrogen 11 mg/dL (9-16); Calcium 9.3 mg/dL (8.4-10.2); Carbon Dioxide 33 mmol/L (22-29); Chloride 103 mmol/L (96-108); Estimated Glomerular Filt Rate > 60; Glucose Random 94 mg/dL (60-115); Potassium 4.4 mmol/L (3.3-5.1); Sodium 141 mmol/L (135-145); Total Protein 8.1 g/dL (6.5-8.0)
== END 2024-11-19 13:38 | disposition home or self-care (01) ==
LOC: HO.LAB 13:37
PROVIDERS: PCP Internal Medicine; Visit Provider Internal Medicine Gastroenterology
DX: K75.81 Nonalcoholic steatohepatitis (NASH) (principal); K74.60 Unspecified cirrhosis of liver; R79.89 Other specified abnormal findings of blood chemistry
CPT/HCPCS: 36415; 80053; 82248; 85025; 85610

== ENCOUNTER 2024-12-03 15:46 | Outpatient (REF) | payer MEDICARE, MEDICAID, SELFPAY ==
--- NOTE | ~2024-12-03 | CT_ITS ---
CLINICAL HISTORY: K74.60 - Unspecified cirrhosis of liver CT abdomen with and without contrast Comparison: CT/MO/SR - CT ABDOMEN WO/W IV CON - 05/22/24 11:16 EDT Findings: There is a left-sided Bochdalek hernia containing fat. There are multiple metallic foreign bodies within the adjacent soft tissues and within the adjacent rib without change. No consolidation or pleural effusion. There are changes of liver cirrhosis. There is no focal liver lesion. The portal venous system is unremarkable. There has been a prior cholecystectomy. There are multiple splenules. There is a subcentimeter fat density nodular focus within the distal pancreatic body without change. There is a relative fullness of the left adrenal gland without focal nodule. This is unchanged. There are several tiny kidney cysts. There are no calcified gallstones. There is no biliary dilatation. Mildly enlarged faisal hepatis lymph node without change. No bowel obstruction, pneumoperitoneum, or pneumatosis. The bones are intact. IMPRESSION: 1. There is liver cirrhosis. 2. Prior splenectomy. This document has been electronically signed by: Mariangel Luna MD on 12/04/2024 15:56:04
[2024-12-03] MEDS: iohexoL 350 MG/ML 100 ML INFUS..BTL IV (17:08)
--- OUTSIDE RECORDS SUMMARY | 2024-12-03 17:39 | XMS_ITS | Clinical Summary ---
Author Organization [facility] Address [address] [address] Care Team Providers Care Rat Breeder Name Role Phone Unavailable Primary Care Provider [...]
--- OUTSIDE RECORDS SUMMARY | 2024-12-03 17:39 | XMS_ITS | Clinical Summary ---
Author Organization [facility] Address [address] [place] [address] Phone Care Team Providers Care Pier Hand Helper Name Role Phone Rocael Valles MD Primary Care Provider [phone] Medications lactulose (Generlac) solution Take 30 mL by mouth 2 times DAILY 05/01/2019 Active Encounters Date Type Department Care Team Description 11/22/2024 2:30 PM EDT Consult Orthopedic Surgery [facility] [address] [phone] Logan Montano DPM Acquired hammer toe of right foot (Primary Dx); Deformity of toe of right foot; Dermatophytosis of nail; Pain in toe of right foot; Pain in toe of left foot; Alcoholic peripheral neuropathy (CMS/HCC) from Last 3 Months Social History Tobacco Use Types Packs/Day Years Used Date Smoking Tobacco: Never Assessed Sex and Gender Information Value Date Recorded Sex Assigned at Not on file Legal Sex Male 10:42 AM EST Gender Identity Not on file Sexual Orientation Not on file Plan of Treatment Upcoming Encounters Date Type Department Care Team (Late st Contact Info) Description 01/24/2025 1:30 PM EDT Office Visit Orthopedic Surgery [facility] [address] [phone] Logan Montano DPM [address] [address] Health Maintenance Due Date Last Done Comments DTaP,Tdap,and Td Vaccines (1 - Tdap) 1975 RSV Immunization Patients 60+ Years Old (1 - Risk 60-74 years 1-dose series) 2016 Pneumococcal Vaccine: 50+ Years (3 of 3 - PCV) 09/20/2019 09/20/2018, 11/28/2017 COVID-19 Vaccine ( - 2023- season) 2024 07/14/2023, 06/18/2022, 12/25/2021, Additional history exists Influenza Vaccine (#1) 2024 , 06/18/2022, 06/18/2021, Additional history exists Abdominal Aortic Aneurysm (AAA) Screen 09/20/2024 Cholesterol Screening (Lipid Panel) 09/20/2024 09/27/2017 Colorectal Cancer Screening: Colonoscopy 09/20/2024 Depression Screening 09/20/2024 Falls Risk Assessment 09/20/2024 Hepatitis C Screening 09/20/2024 Medicare Annual Wellness Visit 09/20/2024 Social Influencers of Health Screening 09/20/2024 Hepatitis A Vaccines (2 of 2 - Risk 2-dose series) 04/07/2025 10/08/2024 Hepatitis B Vaccines (3 of 3 - Risk 3-dose series) 04/07/2025 11/07/2024, 10/08/2024 Zoster Vaccines Completed 08/15/2019, 05/12/2019 HIB Vaccines Aged Out No longer eligi [...] to complete this topic RSV Immunization Patients Under 20 months Aged Out No longer eligible based on patient's age to complete this topic Varicella Vaccines Aged Out No longer eligible based on patient's age to complete this topic Insurance MEDICARE MEDICAID - [place] Care Teams Pier Hand Helper Relationship Specialty Start Date End Date Rocael Valles MD [address] [place] [address] [address] [place], [place] PCP - General Internal Medicine 02/11/15
--- OUTSIDE RECORDS SUMMARY | 2024-12-03 17:39 | XMS_ITS | Clinical Summary ---
Author Organization [facility] Address [address] [place] [address] Care Team Providers Care Director Wholesale Name Role Phone Unavailable Primary Care Provider [...]
== END 2024-12-03 15:47 | disposition home or self-care (01) ==
LOC: HO.CT 15:46
PROVIDERS: PCP Internal Medicine; Visit Provider Internal Medicine Gastroenterology
DX: K74.60 Unspecified cirrhosis of liver (principal)
CPT/HCPCS: 74170; Q9967

== ENCOUNTER → 2024-12-03 15:47 | Outpatient (BNV) | payer MEDICARE, MEDICAID, SELFPAY | PROVIDERS: PCP Internal Medicine; Visit Provider Radiology Diagnostic Radiology | DX: K74.60 Unspecified cirrhosis of liver (principal) | CPT/HCPCS: 74170 ==

== ENCOUNTER 2024-12-07 11:30 | Outpatient (AMB) | payer MEDICARE, MEDICAID, SELFPAY ==
[2024-12-07 11:34] VITALS: BP 123/73; PULSE 59; BMI 35.9
--- NOTE | 2024-12-07 11:34 | MHC.OFFVIS ---
Vital Signs 12/07/24 11:34 Height 5 ft 8 in Weight 235 lb 14.314 oz BMI 35.9 BP 123/73 Blood Pressure Location Lt brachial Position Sitting Pulse 59 Intake Visit Reasons: pt req for ct results Intake Note: Arnold presents in the office as a CT results. CC: Bloating in the stomach, around 2 pm he states that his stomach is hard as a rock. He states that he was diagnosed with fibromyalsia Allergies carisoprodol [From [facility]] Allergy (Unknown, Verified 12/07/24 11:34) VOMITING HPI HPI pt req for ct results: Details: 69 yr old m here for f/u 1/ Possible early cirrhosis, hx of Hep C treatment and cure 2014 Labs are fairly normal, nml plts and INR, nml LFT ? partial PVT seen on US 2/ Large hiatal hernia? on EGD he has feeling of epigastric blaoting and discomfort, sometimes dysphagia he has had discomfort for 3 yrs or so has tried numerous PPI without relief Ba swallow: 05/11/24 cricopharyngeal achalasia no hiatal hernia seen CT Liver: 05/[address] no liver lesion no PVT --patent veins splenectomy noted EGD: 08/28 dilation, esophagitis and gastritis noted CT: 12/2024 cirrhosis, no liver mass, or ascites INTERIM: no issues with swallowing he feels omeprazole is not that good for reflux he has issues with bloating still even with cipro treatment no chest pain no abdominal pain on lactulose eats dairy EXAM: GENERAL: The patient is well developed and nontoxic. tardive dyskinesia VITAL SIGNS:see workflow HEENT: Nonicteric sclerae, PERRLA, EOMI. Oropharynx clear. Moist mucous membranes. Conjunctivae appear well perfused. No thyroid mass. CHEST: Chest wall is nontender. HEART: Regular rate and rhythm without murmurs. LUNGS: Clear to auscultation bilaterally. ABDOMEN: Soft, positive bowel sounds, nontender, no organomegaly.no flank tenderness SKIN: mild bruising on hands. no spiders NEUROLOGIC: Cranial nerves II-XII intact without motor/sensory deficit. Psych: normal affect A/P: 1/ Possible early cirrhosis with no mass lesions, non specific LN, 2/ Dysphagia from cricothyroid achalasia or poss dysmotility 3/ bloating, on and off--? CHo intolerance, 2/2 lactulose, functional PLAN: 1/ EGD for variceal screening in 1-2 yrs--may do earlier for disaccharidases and rept dilation if needed 2/ HCC: rept imaging in 6 months or so 3/ change PPI to nexium 4/ trial of TCA for GI sx -will call me in 4 weeks with update 5/ stop lactulose and use miralax [facility] Medical History Hepatitis C Cirrhosis Tardive dyskinesia Surgical History History of esophagogastroduodenoscopy (EGD) H/O colonoscopy Social History Alcohol intake: former Patient Tobacco Use Status: Current someday Tobacco user Tobacco use type: Cigarette Cigarettes Per Day: 1 Physical Exam Vital Signs: Last Vital Signs Pulse 59 12/07/24 11:34 BP 123/73 12/07/24 11:34 BMI result Body Mass Index 35.9 Assessment & Plan Assessment & Plan (1) Cirrhosis: Code(s): K74.60 - Unspecified cirrhosis of liver Category: Medical Plan: as above Medications: New esomeprazole magnesium 20 mg PO BID 90 caps 1RF amitriptyline 10 mg PO BEDTIME 30 tabs 1RF polyethylene glycol 3350 (Miralax) 17 grams PO DAILY 476 grams 2RF Discontinued ciprofloxacin HCl Discontinued Reason: Patient no longer taking 500 mg PO BID 28 tabs 0RF omeprazole Discontinued Reason: Doctor's Order 20 mg PO BID 90 days 180 caps 3RF K29.90 - Gastroduodenitis, unspecified, without bleeding Coding Level of Care Code Est Pt Level 4 (69862) Diagnoses Cirrhosis K74.60
--- OUTSIDE RECORDS SUMMARY | 2024-12-07 13:30 | XMS_ITS | Clinical Summary ---
Author Organization [facility] Address [address] [place] [address] Care Team Providers Care Drug Room Operator Name Role Phone Unavailable Primary Care Provider [...]
--- OUTSIDE RECORDS SUMMARY | 2024-12-07 13:30 | XMS_ITS | Clinical Summary ---
Author Organization [facility] Facility Address [address] [address] Care Team Providers Care Director Hydrogen Storage Engineering Name Role Phone Unavailable Primary Care Provider [...]
--- OUTSIDE RECORDS SUMMARY | 2024-12-07 13:30 | XMS_ITS | Clinical Summary ---
Author Organization [facility] Address [address] [place] [address] Phone Care Team Providers Care Seed Potato Arranger Name Role Phone Rocael Valles MD Primary Care Provider [phone] Medications lactulose (Generlac) solution Take 30 mL by mouth 2 times DAILY 05/01/2019 Active Encounters Date Type Department Care Team Description 11/22/2024 2:30 PM EDT Consult Orthopedic Surgery [facility] [address] [phone] Logan Montano DPM Acquired hammer toe of [...] 1:30 PM EDT Office Visit Orthopedic Surgery [facility] [address] [phone] Logan Montano DPM [address] [address] Health Maintenance Due Date Last Done Comments DTaP,Tdap,and Td Vaccines (1 - Tdap) 1975 RSV Immunization Adult Patients (1 - Risk 60-74 years 1-dose series) 2016 Pneumococcal Vaccine: 50+ Years (3 of 3 - PCV) 09/20/2019 09/20/2018, 11/28/2017 COVID-19 Vaccine ( - season) 2024 07/14/2023, 06/18/2022, 12/25/2021, Additional history [...] Insurance MEDICARE [place] - [place] Care Teams Seed Potato Arranger Relationship Specialty Start Date End Date Rocael Valles MD [address] [place] [address] [address] [place], [place] PCP - General Internal Medicine 02/11/15
== END 2024-12-07 12:53 | disposition home or self-care (01) ==
LOC: HO.HGI 11:30
PROVIDERS: PCP Internal Medicine; Visit Provider Internal Medicine Gastroenterology
DX: K74.60 Unspecified cirrhosis of liver (principal)
CPT/HCPCS: 99214

== ENCOUNTER → 2024-12-07 11:30 | Outpatient (BNVA) | payer MEDICARE, MEDICAID, SELFPAY | PROVIDERS: PCP Internal Medicine; Visit Provider Internal Medicine Gastroenterology | DX: K74.60 Unspecified cirrhosis of liver (principal); K29.90 Gastroduodenitis, unspecified, without bleeding; M79.7 Fibromyalgia | CPT/HCPCS: 99212 ==

== ENCOUNTER 2025-02-05 07:21 | Day surgery (SDC) | payer MEDICARE, MEDICAID, SELFPAY ==
--- OUTSIDE RECORDS SUMMARY | 2025-01-15 06:36 | XMS_ITS | Clinical Summary ---
Author Organization [facility] Address [address] [place] [address] Phone Care Team Providers Care Electrical Assembler Name Role Phone Rocael Valles MD Primary Care Provider [phone] Medications lactulose (Generlac) solution Take 30 mL by mouth 2 times DAILY 05/01/2019 Active Encounters Date Type Department Care Team Description 11/22/2024 2:30 PM EDT Consult Orthopedic Surgery [facility] [address] [phone] Logan Montano DPM Acquired hammer toe of right foot (Primary Dx); Deformity of toe of right foot; Dermatophytosis of nail; Pain in toe of right foot; Pain in toe of left foot; Alcoholic peripheral neuropathy (CMS/HCC V24) from Last 3 Months Social History Tobacco [...] 1:30 PM EDT Office Visit Orthopedic Surgery [facility] [address] [phone] Logan Montano DPM [address] [address] Health Maintenance Due Date Last Done Comments DTaP,Tdap,and Td Vaccines (1 - Tdap) 1975 RSV Immunization Adult Patients (1 - Risk 60-74 years 1-dose series) 2016 Pneumococcal Vaccine: 50+ Years (3 of 3 - PCV) 09/20/2019 09/20/2018, 11/28/2017 COVID-19 Vaccine ( - season) 2024 07/14/2023, 06/18/2022, 12/25/2021, Additional history exists Abdominal Aortic Aneurysm (AAA) [...] - Risk 3-dose series) 04/07/2025 11/07/2024, 10/08/2024 Influenza Vaccine (Season Ended) 2025 07/14/2023, 06/18/2022, 06/18/2021, Additional history exists Zoster Vaccines Completed 08/15/2019, 05/12/2019 HIB Vaccines [...] age to complete this topic Meningococcal B Vaccine Aged Out No l onger eligible based on patient's age to complete this topic RSV Immunization Patients Under 20 months Aged Out No longer eligible based on patient's age to complete this topic Varicella Vaccines Aged Out No longer eligible based on patient's age to complete this topic Insurance MEDICARE [place] - [place] Care Teams Electrical Assembler Relationship Specialty Start Date End Date Rocael Valles MD [address] [place] [address] [address] [place], [place] PCP - General Internal Medicine 02/11/15
--- OUTSIDE RECORDS SUMMARY | 2025-01-15 06:36 | XMS_ITS | Clinical Summary ---
Author Organization [facility] Facility Address [address] [address] Care Team Providers Care Infrastructure Solutions Architect Name Role Phone Unavailable Primary Care Provider [...] Colorectal Cancer Screening: Sigmoidoscopy 2005 Pneumococcal Vaccine: 50+ Ye ars (1 of 1 - PCV) 2006 Influenza Vaccine (Season Ended) 2025 Hepatitis B Vaccine Aged Out No longe r eligible based on patient's age to complete this topic
--- NOTE | 2025-02-04 09:46 | P.CONAN_ITS ---
Documented by User: Ellie Patterson NP 02/04/25 09:56 HPI - Anesthesia Eval Consult details Narrative: 69yo M for Colonoscopy Cirrhosis s/p EGD 08/2024 - no varices seen PMFSH Active Problems Active Problems: All Active Problems Gastritis and duodenitis (Acute) Diarrhea (Acute) Portal vein thrombosis (Acute) Bloating (Acute) Hepatitis C (Acute) Cirrhosis (Acute) Elevated LFTs (Acute) Past Medical History Medical History Hepatitis C Cirrhosis Tardive dyskinesia Family History Family history of problems with anesthesia: No Surgical History Surgical History History of esophagogastroduodenoscopy (EGD) H/O colonoscopy History of Problems with Anesthesia: No Social History Social History Are you a primary manager primary care to a significant other at home: No Do you presently have visiting nurse or other home services: No Alcohol intake: former Patient Tobacco Use Status: Current someday Tobacco user Tobacco use type: Cigarette Cigarettes Per Day: 1 Second Hand Smoke Exposure: No Use of substances other than those prescribed or required for medical reasons: No Have you been hit, kicked, punched, or otherwise hurt by someone within the past year? If so, by whom?: No Are you DNR?: No Advance Directives: No Advance Directives Information Provided: Yes Advance Directives on File: No Poor oral hygiene: Yes Meds Allergies Allergy/AdvReac Type Severity Reaction Status Date / Time carisoprodol [From [facility]] Allergy Unknown VOMITING Verified 12/07/24 11:34 Home Medications ?Medication ?Instructions ?Recorded ?Confirmed ?Last Taken ?Type furosemide 20 mg tablet 20 mg PO DAILY 10/11/23 08/22/24 08/22/24 07:00 History lorazepam 1 mg tablet 1 mg PO TID PRN Anxiety 10/11/23 08/22/24 08/22/24 07:00 History sertraline 100 mg tablet 100 mg PO DAILY 10/11/23 08/22/24 08/22/24 07:00 History spironolactone 100 mg tablet 100 mg PO DAILY 10/11/23 08/22/24 Unknown History [id number] 120 mcg-lutein tab PO 10/08/24 Unknown History 150 mcg-herb 50 mg chewable tablet (Alive Men's 50 Plus Multivitamin) Exam Pertinent Lab Results Pertinent Lab Results: Laboratory Tests 11/19/24 13:50 WBC 11.3 H Hgb 16.4 Hct 46.2 Plt Count 320 PT 11.4 INR 1.0 Sodium 141 Potassium 4.4 Chloride 103 Carbon Dioxide 33 H BUN 11 Creatinine 0.78 Total Bilirubin 0.5 Direct Bilirubin 0.2 AST 31 ALT 16 Alkaline Phosphatase 70 Total Protein 8.1 H Albumin 4.2 Assessment and Plan Assessment Anesthesia Assessment: Chart Reviewed Final Anesthetic Review Family History of Problems with Anesthesia: No History of Problems with Anesthesia: No Documented by User: Maile Villavicencio MD 02/05/25 09:04 [facility] Past Medical History Medical History Hepatitis C Cirrhosis Tardive dyskinesia Surgical History Surgical History History of esophagogastroduodenoscopy (EGD) H/O colonoscopy Social History Social History Are you a primary manager primary care to a significant other at home: No Do you presently have visiting nurse or other home services: No Alcohol intake: former Patient Tobacco Use Status: Current someday Tobacco user Tobacco use type: Cigarette Cigarettes Per Day: 1 Second Hand Smoke Exposure: No Use of substances other than those prescribed or required for medical reasons: No Have you been hit, kicked, punched, or otherwise hurt by someone within the past year? If so, by whom?: No Are you DNR?: No Advance Directives: No Advance Directives Information Provided: Yes Advance Directives on File: No Poor oral hygiene: Yes Meds Allergies Allergy/AdvReac Type Severity Reaction Status Date / Time carisoprodol [From [facility]] Allergy Unknown VOMITING Verified 12/07/24 11:34 Home Medications ?Medication ?Instructions ?Recorded ?Confirmed ?Last Taken ?Type furosemide 20 mg tablet 20 mg PO DAILY 10/11/23 08/22/24 08/22/24 07:00 History lorazepam 1 mg tablet 1 mg PO TID PRN Anxiety 10/11/23 08/22/24 08/22/24 07:00 History sertraline 100 mg tablet 100 mg PO DAILY 10/11/23 08/22/24 08/22/24 07:00 History spironolactone 100 mg tablet 100 mg PO DAILY 10/11/23 08/22/24 Unknown History [id number]-[id number] 120 mcg-lutein tab PO 10/08/24 Unknown History 150 mcg-herb 50 mg chewable tablet (Alive Men's 50 Plus Multivitamin) Exam Airway Mallampati Class: II TM Dist: >3cm Neck ROM: Full Heart: rrr Lungs: cta Assessment and Plan Assessment Anesthesia Assessment: Anesthesia Plan Discussed Final Anesthetic Review NPO: Yes ASA Class: III Final Preanesthetic Review: No Changes in Pt Med Stat, Meds/Allgs Chart Reviewed, Consent Obtained/Reviewed and Anes Risks/Benef Reviewed Patient Risk: Intermediate Procedure Risk: Low Anesthetic Plan Anesthetic Plan: MAC: Disposition: Standard PACU
[2025-02-05 07:55] VITALS: BMI 35.5
[2025-02-05 08:03] VITALS: BP 122/76; PULSE 62; RESP 18; TEMP 36.6; O2SAT 97
[2025-02-05] MEDS: Lactated Ringers 1,000 ML 100 ML IVCONT (08:08)
--- NOTE | 2025-02-05 09:33 | P.HPSUR_ITS ---
Pre-Procedural Eval Section A - 24 Hr Update-Section A only Date of Service: 02/05/25 Section B - Complete if H&P > 30 days Chief Complaint: rectal bleed,cirrhosis of liver Relevant Family History (Specify if Yes): No Relevant Social History: Tobacco Use Present Medications: see Short Stay Collaborative assessment Medical History: Significant History (Hepatitis C Cirrhosis Tardive dyskinesia) History of Previous Operations: Relevant previous surgery/procedure and date(s) ( History of esophagogastroduodenoscopy (EGD) H/O colonoscopy) Allergies: Allergies Allergy/AdvReac Type Severity Reaction Status Date / Time carisoprodol [From [facility]] Allergy Unknown VOMITING Verified 12/07/24 11:34 Review of Systems Sugical H&P ROS: Negative: Constitution, Cardiovascular, Respiratory, Neurological, Psychiatric, Hem-Onc, Allergic/Immunologic, Gastrointestinal, Terri tourinary, Musculoskeletal, Integumentary, Endocrine and Eyes/Ears/Nose/Throat Exam Surgical H&P Exam: Normal: HEENT, Normal: Heart, Normal: Lungs, Normal: Extremities, Normal: Abdomen, Normal: Skin and Normal: Neurological Plan Diagnosis/Plan: Unchanged I have reviewed the history and physical and performed a pertinent physical examination on my patient. No changes have occurred unless specified. Time Spent With Patient Time: Total time managing care of this patient today ____ minutes.
--- NOTE | 2025-02-05 10:15 | HO.OPN-COLON ---
Colonoscopy Operative Note Operative Note Date of Service: 02/05/25 Narrative: Operative Information Procedure Description: Colonoscopy Indication: rectal bleeding Anesthesia: MAC COLONOSCOPY Instrument: Olympus variable stiffness pediatric scope 190L Colonoscopy Monitoring: Vital signs and clinical assessment, continuous EKG monitoring, Pulse oximetry, Carbon Dioxide monitoring and blood pressure monitoring were done throughout the procedure. Colon withdrawal time was 15 minutes. Procedure: The patient was placed in the left lateral decubitis position and pre-procedure medications were administered. After a digital rectal examination of the ano-rectum, the video colonoscope was inserted into the rectum and advanced through the colon to the cecum/TI. The colonoscope was slowly withdrawn in a retrograde panoramic fashion and the colon mucosa was carefully examined including a retroflexed view of the rectum. Findings and interventions are described below. Procedure Difficulty: easy Findings: Terminal Ileum-normal Cecum:normal Ascending Colon: 3-4 mm sessile polyp removed with cold forceps Transverse Colon -normal Descending Colon:normal Sigmoid Colon: severe diverticulosis, x 2 sessile polyps 8-10 mm removed with cold snare, one area with clip applied for hemostasis Rectum: Retroflexion with small internal hemorrhoids seen, grade I, mild erythema, bx taken also x 1 sessile polyp 7-9 mm removed with cold snare Anorectum - normal Intervention: cold snare, cold forceps Colon preparation: Petroleum Bowel Preparation Scale Right colon; 2 Transverse colon: 2 Left colon; 2 (0 = Unprepared colon segment with mucosa not seen due to solid stool that cannot be cleared. 1 = Portion of mucosa of the colon segment seen, but other areas of the colon segment not well seen due to staining, residual stool and/or opaque liquid. 2 = Minor amount of residual staining, small fragments of stool and/or opaque liquid, but mucosa of colon segment seen well. 3 = Entire mucosa of colon segment seen well with no residual staining, small fragments of stool or opaque liquid) Impression and Post Procedure Diagnosis: diverticulosis colon polyps internal hemorrhoids mild proctitis vs prep artifact Plan: High fiber diet leaflet Avoid straining at stool, epsom salts and sitz bath, anusol supps or cream Repeat Colonoscopy in 3-4 years due to polyps or earlier if clinically indicated trial of mesalamine if proctitis confirmed on bx Above findings were reviewed with the patient and relevant handouts were provided if indicated.
[2025-02-05 10:20] VITALS: BP 117/64; PULSE 52; RESP 12; TEMP 36.6
[2025-02-05 10:35] VITALS: BP 128/77; PULSE 59; RESP 20; TEMP 36.6; O2SAT 96
== END 2025-02-05 11:12 | disposition home or self-care (01) ==
PROVIDERS: PCP Internal Medicine; Visit Provider Internal Medicine Gastroenterology
PROC: 0DJD8ZZ Inspection of Lower Intestinal Tract, Via Natural or Artificial Opening Endoscopic (ICD-10-PCS; CPT 45378; principal; 2025-02-05 09:20)
DX: K62.5 Hemorrhage of anus and rectum (principal); D12.2 Benign neoplasm of ascending colon; K63.5 Polyp of colon; K62.1 Rectal polyp; K57.30 Diverticulosis of large intestine without perforation or abscess without bleeding; K74.60 Unspecified cirrhosis of liver; K64.0 First degree hemorrhoids; R13.10 Dysphagia, unspecified; B19.20 Unspecified viral hepatitis C without hepatic coma; G24.01 Drug induced subacute dyskinesia; Z79.899 Other long term (current) drug therapy; Z88.8 Allergy status to other drugs, medicaments and biological substances; F17.210 Nicotine dependence, cigarettes, uncomplicated
CPT/HCPCS: 45385; 45380; 88305; J2003; J2704; J3010

== ENCOUNTER → 2025-02-05 07:21 | Outpatient (BNV) | payer MEDICARE, MEDICAID, SELFPAY | PROVIDERS: PCP Internal Medicine; Visit Provider Internal Medicine Gastroenterology | DX: K62.5 Hemorrhage of anus and rectum (principal); D12.2 Benign neoplasm of ascending colon; K57.30 Diverticulosis of large intestine without perforation or abscess without bleeding; D12.5 Benign neoplasm of sigmoid colon; D12.8 Benign neoplasm of rectum; K64.0 First degree hemorrhoids | CPT/HCPCS: 45380; 45385 ==

== ENCOUNTER 2025-08-26 12:14 | Outpatient (REF) | payer MEDICARE, MEDICAID, SELFPAY ==
--- NOTE | ~2025-08-26 | US_ITS ---
CLINICAL HISTORY: K74.60 - Unspecified cirrhosis of liver US abdomen complete Comparison: CT abdomen 12/03/2024 Findings: Visualized pancreas is normal. Aorta and inferior vena cava are normal caliber. The liver is normal in size and and reveals mildly heterogeneous echotexture. Slightly irregular hepatic contour is compatible with mild cirrhosis.. Right lobe length is 15.6 cm. There is no intrahepatic bile duct dilatation. The common duct is 8 mm in diameter. The gallbladder reveals a nonshadowing nonmobile filling defect measuring 6 x 5 x 4 mm, likely small polyp versus adherent sludge ball. No shadowing stones, wall thickening or pericholecystic fluid.. There is no sonographic Chavira sign. The main portal vein is antegrade The right kidney is normal, 10.6 cm in length. The left kidney is normal, 11.3 cm in length. A tiny upper pole cyst measuring up to 11 mm is present. The spleen is surgically absent. Impression: 1. Slightly irregular hepatic contour suggests hepatic cirrhosis. No focal hepatic lesions identified. 2. Small likely gallbladder polyp measuring up to 6 mm. 3. Small left renal cyst. 4. Prior splenectomy. This document has been electronically signed by: Loyd Bowles MD on 08/27/2025 13:51:06
--- OUTSIDE RECORDS SUMMARY | 2025-08-26 15:28 | XMS_ITS | Clinical Summary ---
Author Organization [facility] Facility Address [address] [address] Care Team Providers Care Primary Special Educator Name Role Phone Unavailable Primary Care Provider [...] of 1 - PCV) 2006 Influenza Vaccine (#1) 2025 Hepatitis B Vaccine Aged Out No longe r eligible based on patient's age to complete this topic
--- OUTSIDE RECORDS SUMMARY | 2025-08-26 15:28 | XMS_ITS | Clinical Summary ---
Author Organization [facility] Address [address] [place] [address] Phone Care Team Providers Care Traffic Analysis Technician Name Role Phone Rocael Valles MD Primary Care Provider [phone] Allergies Active Allergy Reactions Criticality Noted Date Comments Carisoprodol Medium 03/19/2018 Valbenazine 07/10/2025 Medications lactulose (Generlac) solution Take 30 mL by mouth 2 times DAILY 05/01/2019 Active amitriptyline (ELAVIL) 10 mg tablet Take 1 tablet (10 mg total) by mouth. at bedtime. 02/11/2025 Active ARIPiprazole (ABILIFY) 15 mg tablet Take 1 tablet (15 mg total) by mouth daily. Active buPROPion SR (WELLBUTRIN SR) 200 mg 12 hr tablet Take 1 tablet (200 mg total) by mouth daily. 10/21/2017 Active esomeprazole (NexIUM) [address] capsule Take 1 capsule (20 mg total) by mouth 2 (two) times a day. 03/07/2025 Active furosemide (LASIX) 20 mg tablet Take 1 tablet (20 mg total) by mouth 1 (one) time each day. Active gabapentin (NEURONTIN) 300 mg capsule Take 2 capsules (600 mg total) by mouth 3 times daily. Active ibuprofen (ADVIL,MOTRIN) 600 mg tablet Take 1 tablet (600 mg total) by mouth every 8 hours as needed. 10/21/2017 Active lithium (LITHOBID) 300 mg CR tablet Take 2 tablets (600 mg total) by mouth daily. 10/21/2017 Active LORazepam (ATIVAN) 1 mg tablet Take 1 tablet (1 mg total) by mouth. 06/18/2025 Active polyethylene glycol (PEG) 17 gram/dose oral powder DISSOLVE 17 GRAMS IN LIQUID AND DRINK BY MOUTH DAILY 03/26/2025 Active propranoloL (INDERAL) 10 mg tablet 1/2 TAB IN AM, 1 TAB IN PM as directed 10/21/2017 Active sertraline (ZOLOFT) 100 mg tablet Take 2 tablets (200 mg total) by mouth 1 (one) time each day in the morning. 06/01/2025 Active sodium,violaassiu m,mag sulfates (SUPREP) 17.5-3.13-1.6 gram recon soln bowel prep kit oral solution DILUTE AND DRINK 1/2 OUNCES AT 6PM TO 8PM AND HALF AT 11PM THROUGH 1AM 01/11/2025 Active spironolactone (ALDACTONE) 100 mg tablet Take 1 tablet (100 mg total) by mouth 1 (one) time each day. Active sucralfate (CARAFATE) 100 mg/mL suspension SHAKE LIQUID AND TAKE 10 ML BY MOUTH TWICE DAILY 09/10/2024 Active traZODone (DESYREL) 100 mg tablet Take 1 tablet (100 mg total) by mouth daily. 10/21/2017 Active Encounters Date Type Department Care Team Description 07/10/2025 2:45 PM EST Office Visit Orthopedic [address] [phone] Logan Montano DPM Acquired hammer toe of right foot (Primary Dx); Hammer toe of left foot; Deformity of toe of right foot; Dermatophytosis of nail; Alcoholic peripheral neuropathy (CMS/HCC V24); Pain in toe of left foot; Pain in toe of right foot from Last 3 Months Social History Tobacco Use Types Packs/Day Years Used Date Smoking Tobacco: Never Assessed Sex and Gender Information Value Date Recorded Sex Assigned at Not on file Legal Sex Male 10:42 AM EST Gender Identity Not on file Sexual Orientation Not on file Plan of Treatment Upcoming Encounters Date Type Department Care Team (Late st Contact Info) Description 10/09/2025 3:00 PM EST Office Visit Orthopedic [place] [id number] [phone] Logan Montano DPM [address] [phone] Health Maintenance Due Date Last Done Comments Colorectal Cancer Screening: Colonoscopy 1955 Drug Screen 1955 Non-Opioid Controlled Substance Agreement 1955 DTaP,Tdap,and Td Vaccines (1 - Tdap) 1975 RSV Immunization Adult Patients (1 - Risk 50-74 years 1-dose series) 2006 Pneumococcal Vaccine: 50+ Years (2 of 2 - PCV) 09/20/2019 09/20/2018, 11/28/2017 Depression Screening 09/05/2024 Abdominal Aortic Aneurysm (AAA) Screen 09/20/2024 Cholesterol Screening (Lipid Panel) 09/20/2024 09/27/2017 Falls Risk Assessment 09/20/2024 Hepatitis C Screening 09/20/2024 Medicare Annual Wellness Visit 09/20/2024 Social Influencers of Health Screening 09/20/2024 Hepatitis A Vaccines (2 of 2 - Risk 2-dose series) 04/07/2025 10/08/2024 Hepatitis B Vaccines (3 of 3 - Risk 3-dose series) 04/07/2025 11/07/2024, 10/08/2024 COVID-19 Vaccine ( season) 2025 06/08/2025, 07/14/2023, 06/18/2022, Additional history exists Zoster Vaccines Completed 08/15/2019, 05/12/2019 Influenza Vaccine Completed 06/08/2025, , 06/18/2022, Additional history exists HIB Vaccines Aged Out No longer eligi [...] Insurance MEDICARE MEDICAID - [place] Care Teams Traffic Analysis Technician Relationship Specialty Start Date End Date Rocael Valles MD [address] [place] [address] [address] [place], [place] PCP - General Internal Medicine 02/11/15
--- OUTSIDE RECORDS SUMMARY | 2025-08-26 15:28 | XMS_ITS | Clinical Summary ---
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 gabapentin (NEURONTIN) 300 MG capsule Take 600 mg by mouth 3 (three) times a day. Active lactulose (CONSTULOSE) 20 gram/30 mL Soln 2 (two) times a day. Active spironolactone (ALDACTONE) 100 MG tablet Take 100 mg by mouth daily. Active rifAXIMin (XIFAXAN) 550 mg Tab 550 mg 2 (two) times a day. Active traMADol (ULTRAM) 50 mg tablet Take 1 tablet (50 mg total) by mouth every 6 (six) hours as needed. 14 tablet 10/21/2017 Active traMADol (ULTRAM) 50 mg tablet Take 1 tablet (50 mg total) by mouth nightly. 7 tablet 10/21/2017 Active ibuprofen (ADVIL,MOTRIN) 600 MG tablet Take 1 tablet (600 mg total) by mouth every 8 (eight) hours as needed. 30 tablet 10/21/2017 Active propranolol (INDERAL) 10 MG immediate release tablet Take 0.5 tablets (5 mg total) by mouth 3 (three) times a day. 46 tablet 10/21/2017 Active buPROPion (WELLBUTRIN SR) 200 MG SR 12 hr tablet Take 1 tablet (200 mg total) by mouth daily. 30 tablet 10/21/2017 Active lithium (LITHOBID) 300 MG ER tablet Take 2 tablets (600 mg total) by mouth nightly. 30 tablet 10/21/2017 Active LORazepam (ATIVAN) 0.5 MG tablet Take 1 tablet (0.5 mg total) by mouth 3 (three) times a day. 45 tablet 1 10/21/2017 Active traZODone (DESYREL) 100 MG tablet Take 1 tablet (100 mg total) by mouth nightly. 300 tablet 10/21/2017 Active trifluoperazine (STELAZINE) 5 MG tablet Take 3 tablets (15 mg total) by mouth nightly. 90 tablet 10/21/2017 Active lactulose (CONSTULOSE) 10 gram/15 mL (15 mL) Soln 15 ml Orally Once a day Active ARIPiprazole (ABILIFY) 15 MG tablet Take 1 tablet by mouth nightly. Active propranolol (INDERAL) 10 MG immediate release tablet 1/2 TAB IN AM, 1 TAB IN PM as directed Active furosemide (LASIX) 20 MG tablet Take 1 tablet by mouth daily. Active Active Problems Problem Noted Date Diagnosed Date Schizoaffective disorder 09/26/2017 Encounters Date Type Department Care Team Description 06/05/2025 Transcribe Orders [facility] [address] [place] [id number] Rocael Valles MD from Last 3 Months Immunizations No known immunizations Social History Tobacco Use Types Packs/Day Years Used Date Smoking Tobacco: Former Cigarettes Q uit: 03/29/2017 Smokeless Tobacco: Never Tobacco Cessation:Counseling Given: Yes Alcohol Use Standard Drinks/Week Comments No 0 (1 standard drink = 0.6 oz pur e alcohol) Education Answer Date Recorded Are you interested in more education? Not on julsisa e 12/31/2022 Are you concerned about learning? Not on file 12/31/2022 No 12/31/2022 No 12/31/2022 Digital Access Answer Date Recorded No 01/31/2023 No 01/31/2023 Reliable internet access at home? Not on file 01/31/2023 Device with a working camera? Not on file Sex and Gender Information Value Date Recorded Sex Assigned at Male 10/02/2017 1:36 PM EST Legal Sex Male 9:54 PM EDT Gender Identity Male 10/02/2017 1:36 PM EST Sexual Orientation Choose not to disclose 2017 1:36 PM EST Last Filed Vital Signs Vital Sign Reading Time Taken Comments Blood Pressure 136/84 03/10/2021 1:06 PM EDT Pulse 84 03/10/2021 1:06 PM EDT Temperature 36.7 C (98.1 F) 10/21/2017 9:00 AM EST Respiratory Rate 18 10/21/2017 9:00 AM EST Oxygen Saturation 98% 10/21/2017 9:00 AM EST Inhaled Oxygen Concentration - - Weight 104.8 kg (231 lb) 03/10/2021 1:06 PM EDT pt reported Height 172.7 cm (5' 8 ) 03/10/2021 1:06 PM EDT p t reported Body Mass Index 35.12 03/10/2021 1:06 PM EDT Plan of Treatment Upcoming Encounters Date Type Department Care Team ([facility] st Contact Info) Description 09/17/2025 12:30 PM EST Office Visit [facility] [address] [place] [address] Kathy Arriaza, ALLEY WORKER [address] [address] [email or web address] Health Maintenance Due Date Last Done Comments Adult Td,Tdap Booster 1955 DEPRESSION SCREENING 1968 SMOKING Hx and SMOKELESS TOBACCO SCREENING 1969 HEPATITIS C SCREENING 1974 COLOGUARD 2001 COLONOSCOPY 2001 COLORECTAL CANCER SCREENING 2001 FIT TEST 2001 FOBT 2001 SIGMOIDOSCOPY 2001 VIRTUAL COLONOSCOPY 2001 CREATININE LEVEL 10/06/2018 10/06/2017, 09/26/2017 POTASSIUM LEVEL 10/06/2018 10/06/2017, 09/26/2017 TSH LEVEL 10/06/2018 10/06/2017 LITHIUM LEVEL 10/15/2018 10/15/2017, 10/11/2017 PNEUMOCOCCAL VACCINES (50+ years) (2 of 2 - PCV) 11/28/2018 11/28/2017 ABDOMINAL AORTIC ANEURYSM (AAA) SCREENING 2021 LIPID PANEL 09/27/2022 09/27/2017 INFLUENZA VACCINE (#1) 2025 0, 05/12/2019, 06/21/2018 COVID-19 VACCINE (2 - 2024-2 6 season) 2025 12/08/2020 RSV VACCINE (1 - 1-dose 75+ series) 2031 ZOSTER VACCINES Completed 08/15/2019, 05/12/2019 HEPATITIS A VACCINES Aged Out No long er eligible based on patient's age to complete this topic HIB VACCINES Aged Out No longer eligi ble based on patient's age to complete this topic MENINGOCOCCAL VACCINES (ACWY) Aged Out No longer eligible based on patient's age to complete this topic MENINGOCOCCAL VACCINES (B) Aged Out N o longer eligible based on patient's age to complete this topic Medical Devices Not on file Procedures Procedure Name Priority Date/Time Associated Diagnosis Comments LITHIUM LEVEL Timed 10/15/2017 8:53 AM EST THYROID STIMULATING HORMONE (TSH) Routine 10/06/2017 6:42 AM EST BASIC METABOLIC PANEL (BMP) Routine 10/06/2017 6:42 AM EST LIPID PANEL Routine 09/27/2017 7:06 AM EST from Last 3 Months or Most Recently Relevant to Health Maintenance Results * [place] level (10/15/2017 8:53 AM EST) LITHIUM 0.93 0.50 - 1.00 mmol/L [facility] Blood 10/15/2017 8:53 AM EST 10/15/2017 9:04 AM EST us Mary Lund MD LAB BLOOD BKR ORDERABLES Nicole l Result [address] [address] * TSH (10/06/2017 6:42 AM EST) TSH 3.55 0.27 - 4.20 uIU/mL [facility] Blood 10/06/2017 6:42 AM EST 10/06/2017 6:59 AM EST Mary Lund MD LAB BLOOD BKR ORDERABLES Nicole l Result Performing Organization Address City/[facility]/ZIP Co de Phone Number [address] [address] * (ABNORMAL) Basic metabolic panel (10/06/2017 6:42 AM EST) SODIUM 138 133 - 146 mmol/L [facility] CHLORIDE 100 96 - 108 mmol/L [facility] POTASSIUM 4.7 3.3 - 5.1 mmol/L [facility] CO2 30 21 - 35 mmol/L [facility] BUN 20(H) 6 - 19 mg/dL [facility] CREATININE 1.00 0.5 - 1.5 mg/dL [facility] GLUCOSE 86 70 - 99 mg/dL [facility] CALCIUM 8.9 8.4 - 10.3 mg/dL [facility] EGFR >60 60 - 1000 mL/min/1.7 3m2 [facility] Comment:Abnormal if <60. If patient is -Kaz[place], multiply the result by 1.21. ANION GAP 13 10 - 20 mmol/L [facility] Blood 10/06/2017 6:42 AM EST 10/06/2017 6:59 AM EST Mary Lund MD LAB BLOOD BKR ORDERABLES Nicole l Result Performing Organization Address City/[facility]/ZIP Co de Phone Number [address] [address] * LIPID PANEL (09/27/2017 7:06 AM EST) HDL 34 mg/dL [facility] Comment: Interpretation: Risk Level Males Decreased >45 mg/dL Average 40-45 mg/dL Increased <40 mg/dL CHOLESTEROL 146 0 - 240 mg/dL [facility] TRIGLYCERIDES 58 30 - 160 mg/dL [facility] LDL 100 50 - 129 mg/dL [facility] Comment: LDL levels in terms of risk for coronary heart disease: <100 mg/dL: Optimal 100-129 mg/dL: Near or above optimal 130-159 mg/dL: Borderline high 160-189 mg/dL: High >190 mg/dL: Very High CARDIAC RISK RATIO 4.3 3.4 - 5.0 [facility] Blood 09/27/2017 7:06 AM EST 09/27/2017 7:24 AM EST us Konrad Pichardo MD LAB BLOOD BKR ORDERABLES Final R esult [facility] [address] [place] [address] from Last 3 Months or Most Recently Relevant to Health Maintenance Insurance [place] [facility] [employer] PART A & B Member Subscriber Plan / Payer ( fective 2017-Present) Name:Arnold Greco Member ID:[id number] Relation to Subscriber:Self Name:Arnold Greco Subscriber ID:[id number] Payer ID:[id number] Group ID:Not on file Type:Medicare Address: [employer] [address] [facility] [place] [address] MEDICARE PART A & [place] [place] [address] MEDICARE PART A & B Advance Directives For more information, please contact: [phone] (9AM - 5PM [facility], Tuesday-Tuesday) * Full Code (Presumed) (Latest Code Status on File) Date Activated Date Inactivated Comments 09/26/2017 6:33 PM 10/21/2017 4:59 PM Care Teams Linting Machine Operator Relationship Specialty Start Date End Date Rocael Valles MD [address] [facility] [address] [place] [address] PCP - General Internal Medicine 02/11/21 Additional Source Comments The information contained in this document represents components of the legal health record. It is not the complete legal health record.[facility]
--- OUTSIDE RECORDS SUMMARY | 2025-08-26 15:28 | XMS_ITS | Clinical Summary ---
Author Organization [facility] Address [address] [place] [address] Care Team Providers Care Power Reactor Operator Name Role Phone Unavailable Primary Care Provider Unavailabl e Social History Tobacco Use Types Packs/Day Years Used Date Smoking Tobacco: Never Assessed Sex and Gender Information Value Date Recorded Sex Assigned at Not on file Legal Sex Male 2:54 AM EST Gender Identity Not on file Sexual Orientation Not on file Plan of Treatment Health Maintenance Due Date Last Done Comments Advance Care Planning 1955 Hepatitis C Virus Screening 1955 DTaP/Tdap/Td Vaccines (1 - Tdap) 1975 Colonoscopy 2001 Pneumococcal Vaccines 50+ (1 of 1 - PCV) 2006 Zoster (Shingles) Vaccine (1 of 2) 2006 Influenza Vaccine 04/05/2025 COVID-19 Vaccine (1 - 2024-2 6 season) 2025 RSV Vaccine 50 years and old er and Patients (1 - 1-dose 75+ series) 2031 Hepatitis B Vaccines Aged Out No long er eligible based on patient's age to complete this topic Insurance MEDICARE PART A & B [facility]
== END 2025-08-26 12:15 | disposition home or self-care (01) ==
LOC: HO.US 12:14
PROVIDERS: PCP Internal Medicine; Visit Provider Internal Medicine
DX: K74.60 Unspecified cirrhosis of liver (principal)
CPT/HCPCS: 76700